=== PATIENT | male | born 1975 ===

== ENCOUNTER 2021-09-07 22:31 | Inpatient (IN) | payer SELFPAY, OTHER ==
[2021-09-07] MEDS ORDERED: cefTRIAXone/NS 2 GM/100 ML 2 GM/100 ML BAG IV ONE (22:43)
[2021-09-07] MEDS ORDERED: SODIUM CHLORIDE 0.9% 1000 ML IV SOLN IV ONE (22:43)
[2021-09-07] MEDS ORDERED: AZITHROMYCIN/NS 500 MG/250 ML 500 MG/250 ML BAG IV ONE (22:43)
[2021-09-07 23:15] LABS: Basophils % (Auto) 0.2 % (0.0-1.8); Eosinophils % (Auto) 0.1 % (0.0-4.3); Hemoglobin 15.9 gm/dl (10.1-14.3); Lymphocytes # (Auto) 0.8 K/mm3 (1.2-5.4); Lymphocytes % (Auto) 12.7 % (13.4-35.0); Mean Corpuscular HGB Conc 33 % (30-34); Mean Corpuscular Volume 93 fl (79-97); Monocytes # (Auto) 0.5 K/mm3 (0.0-0.8); Monocytes % (Auto) 9.2 % (0.0-7.3); Platelet Count 355 K/mm3 (140-440); Red Blood Count 5.17 M/mm3 (3.65-5.03); Red Cell Distribution Width 12.4 % (13.2-15.2)
--- NOTE | 2021-09-07 23:17 | XRay Report ---
CHEST 1 VIEW INDICATION: hypoxia. COMPARISON: None FINDINGS: SUPPORT DEVICES: None. HEART: Within normal limits. LUNGS/PLEURA: Mild patchy multifocal airspace disease, especially in the right lung. No effusion. ADDITIONAL FINDINGS: None. IMPRESSION: 1. Lung findings as above. Signer Name: Madi Ramos MD Signed: 09/07/2021 11:13 PM Workstation Name: [id number]
--- NOTE | 2021-09-07 23:29 | Emergency Department Report ---
ED Shortness of Breath HPI - General Chief Complaint: Dyspnea/Respdistress Stated Complaint: DASHAWN Time Seen by Provider: 09/07/21 22:40 Source: patient Mode of arrival: Ambulatory Limitations: No Limitations - History of Present Illness Initial Comments: Patient is a 46-year-old male with no significant past medical history is presenting with shortness of breath and cough for the last day. Patient also complaining of some mild body aches. Some subjective fevers but no objective fever taken at home. Denies nausea vomiting or diarrhea. Patient has not previously vaccinated against COVID-19 - Related Data Allergies Allergy/AdvReac Type Severity Reaction Status Date / Time No Known Allergies Allergy Unverified 09/07/21 22:36 ED Review of Systems ROS: Stated complaint: DASHAWN Other details as noted in HPI Comment: All other systems reviewed and negative ED Past Medical Hx - Past Medical History Previous Medical History?: No - Surgical History Past Surgical History?: No ED Physical Exam - General Limitations: No Limitations General appearance: alert, in no apparent distress - Head Head exam: Present: atraumatic, normocephalic - Eye Eye exam: Present: normal appearance, PERRL, EOMI - ENT ENT exam: Present: mucous membranes moist - Neck Neck exam: Present: normal inspection - Respiratory Respiratory exam: Present: rhonchi. Absent: normal lung sounds bilaterally, respiratory distress, wheezes, rales - Cardiovascular Cardiovascular Exam: Present: regular rate, normal rhythm, normal heart sounds. Absent: systolic murmur, diastolic murmur, rubs, gallop - GI/Abdominal GI/Abdominal exam: Present: soft, normal bowel sounds. Absent: distended, ten derness, guarding, rebound - Extremities Exam Extremities exam: Present: normal inspection - Back Exam Back exam: Present: normal inspection - Neurological Exam Neurological exam: Present: alert, oriented X3 - Psychiatric Psychiatric exam: Present: normal affect, normal mood - Skin Skin exam: Present: warm, dry, intact, normal color. Absent: rash ED Course Vital Signs 09/07/21 22:35 Temperature 98 F Pulse Rate 87 Respiratory 16 Rate Blood Pressure 112/72 [Right] O2 Sat by Pulse 88 Oximetry ED Medical Decision Making - Lab Data Result diagrams: 09/07/21 22:50 09/07/21 22:50 Lab Results 09/07/21 09/07/21 09/07/21 Range/Units 22:50 22:50 22:50 WBC 6.0 (4.5-11.0) K/mm3 RBC 5.17 H (3.65-5.03) M/mm3 Hgb 15.9 H (10.1-14.3) gm/dl Hct 48.0 H (30.3-42.9) % MCV 93 (79-97) fl MCH 31 (28-32) pg MCHC 33 (30-34) % RDW 12.4 L (13.2-15.2) % Plt Count 355 (140-440) K/mm3 Lymph % (Auto) 12.7 L (13.4-35.0) % [place] % (Auto) 9.2 H (0.0-7.3) % Eos % (Auto) 0.1 (0.0-4.3) % Baso % (Auto) 0.2 (0.0-1.8) % Lymph # (Auto) 0.8 L (1.2-5.4) K/mm3 [place] # (Auto) 0.5 (0.0-0.8) K/mm3 Eos # (Auto) 0.0 (0.0-0.4) K/mm3 Baso # (Auto) 0.0 (0.0-0.1) K/mm3 Seg Neutrophils % 77.8 H (40.0-70.0) % Seg Neutrophils # 4.7 (1.8-7.7) K/mm3 D-Dimer 571.53 H (0-234) ng/mlDDU Sodium 140 (137-145) mmol/L Potassium 3.7 (3.6-5.0) mmol/L Chloride 101.2 (98-107) mmol/L Carbon Dioxide 22 (22-30) mmol/L Anion Gap 21 mmol/L BUN 18 H (7-17) mg/dL Creatinine 0.8 (0.6-1.2) mg/dL Estimated GFR > 60 ml/min BUN/Creatinine Ratio 23 % Glucose 172 H (65-100) mg/dL Lactic Acid (0.7-2.0) mmol/L Calcium 8.7 (8.4-10.2) mg/dL Total Bilirubin 0.40 (0.1-1.2) mg/dL AST 38 (5-40) units/L ALT 37 (7-56) units/L Alkaline Phosphatase 90 (35-129) units/L Total Protein 8.3 H (6.3-8.2) g/dL Albumin 3.9 (3.9-5) g/dL Albumin/Globulin Ratio 0.9 % 09/07/21 Range/Units 22:50 WBC (4.5-11.0) K/mm3 RBC (3.65-5.03) M/mm3 Hgb (10.1-14.3) gm/dl Hct (30.3-42.9) % MCV (79-97) fl MCH (28-32) pg MCHC (30-34) % RDW (13.2-15.2) % Plt Count (140-440) K/mm3 Lymph % (Auto) (13.4-35.0) % [place] % (Auto) (0.0-7.3) % Eos % (Auto) (0.0-4.3) % Baso % (Auto) (0.0-1.8) % Lymph # (Auto) (1.2-5.4) K/mm3 [place] # (Auto) (0.0-0.8) K/mm3 Eos # (Auto) (0.0-0.4) K/mm3 Baso # (Auto) (0.0-0.1) K/mm3 Seg Neutrophils % (40.0-70.0) % Seg Neutrophils # (1.8-7.7) K/mm3 D-Dimer (0-234) ng/mlDDU Sodium (137-145) mmol/L Potassium (3.6-5.0) mmol/L Chloride (98-107) mmol/L Carbon Dioxide (22-30) mmol/L Anion Gap mmol/L BUN (7-17) mg/dL Creatinine (0.6-1.2) mg/dL Estimated GFR ml/min BUN/Creatinine Ratio % Glucose (65-100) mg/dL Lactic Acid 1.40 (0.7-2.0) mmol/L Calcium (8.4-10.2) mg/dL Total Bilirubin (0.1-1.2) mg/dL AST (5-40) units/L ALT (7-56) units/L Alkaline Phosphatase (35-129) units/L Total Protein (6.3-8.2) g/dL Albumin (3.9-5) g/dL Albumin/Globulin Ratio % - Radiology Data Ordering Physician: ADRIAN MILLER MD Date of Service: 09/07/21 Procedure(s): XR chest 1V ap Accession Number(s): [id number] cc: ADRIAN MILLER MD Fluoro Time In Minutes: CHEST 1 VIEW INDICATION: hypoxia. COMPARISON: None FINDINGS: SUPPORT DEVICES: None. HEART: Within normal limits. LUNGS/PLEURA: Mild patchy multifocal airspace disease, especially in the right lung. No effusion. ADDITIONAL FINDINGS: None. IMPRESSION: 1. Lung findings as above. Signer Name: Madi Ramos MD Signed: 09/07/2021 11:13 PM Workstation Name: [id number] - Medical Decision Making Patient more comfortable on oxygen. Chest x-ray consistent with bilateral lateral hazy pneumonia most likely from COVID since the patient is not v accinated. Patient will be admitted to the hospital service for further management. Critical Care Time: Yes (30) Critical care attestation.: If time is entered above; I have spent that time in minutes in the direct care of this critically ill patient, excluding procedure time. ED Disposition Clinical Impression: Atypical pneumonia, Hypoxia, Suspected COVID-19 virus infection Disposition: ADMITTED INPATIENT Is pt being admited?: Yes Does the pt Need Aspirin: No Condition: Stable Referrals: PRIMARY CARE, [Primary Care Provider] - 3-5 Days Time of Disposition: 23:52
[2021-09-07 23:33] LABS: Alanine Aminotransferase 37 units/L (7-56); Albumin 3.9 g/dL (3.9-5); BUN/Creatinine Ratio 23; Blood Urea Nitrogen 18 mg/dL (7-17); Calcium 8.7 mg/dL (8.4-10.2); Hemolysis Index 1
[2021-09-07] MEDS ORDERED: dexAMETHasone 20 MG/5 ML VIAL IV ONE (23:41)
[2021-09-08] MEDS ORDERED: ACETAMINOPHEN 325 MG TAB PO PRN (01:14)
[2021-09-08] MEDS ORDERED: ALBUTEROL 2.5 MG/3 ML NEBU IH PRN (01:14)
[2021-09-08] MEDS ORDERED: HYDROmorphone 1 MG/1 ML INJ IV PRN (01:14)
[2021-09-08] MEDS ORDERED: MORPHINE 2 MG/1 ML INJ IV PRN (01:14)
[2021-09-08] MEDS ORDERED: ONDANSETRON 4 MG/2 ML INJ IV PRN (01:14)
--- NOTE | 2021-09-08 01:22 | History and Physical Report ---
History of Present Illness Date of examination: 09/08/21 Date of admission: 09/08/21 Chief complaint: Shortness of breath History of present illness: 46-year-old male with no significant past medical history was brought to the emergency room because of shortness of breath and cough for the last day. Patient also complaining of some mild body aches. Some subjective fevers but no objective fever taken at home. Denies nausea vomiting or diarrhea. Patient has not previously vaccinated against COVID-19 In the emergency room patient O2 sat was 88% Chest x-ray consistent with bilateral lateral hazy pneumonia most likely from COVID since the patient is not vaccinated. Patient will be admitted to the hospital service for further management. Medications and Allergies Allergies Allergy/AdvReac Type Severity Reaction Status Date / Time No Known Allergies Allergy Unverified 09/07/21 22:36 Active Meds: Active Medications Acetaminophen (Acetaminophen 325 Mg Tab) 650 mg PO Q4H PRN PRN Reason: Pain MILD(1-3)/Fever >100.5/NEWELL Albuterol (Albuterol 2.5 Mg/3 Ml Nebu) 2.5 mg IH Q4HRT PRN PRN Reason: Shortness Of Breath Albuterol/Ipratropium (Ipratropium/Albuterol Sulfate 3 Ml Ampul.Neb) 1 ampul IH Q6HRT [facility] Famotidine (Famotidine 20 Mg Tab) 20 mg PO BID [facility] Heparin Sodium (Porcine) (Heparin 5,000 Unit/1 Ml Vial) 5,000 unit SUB-Q Q8HR [facility] Hydromorphone HCl (Hydromorphone 1 Mg/1 Ml Inj) 0.5 mg IV Q3H PRN PRN Reason: Pain , Severe (7-10) Ceftriaxone Sodium (Rocephin/Ns 2 Gm/100 Ml) 2 gm in 100 mls @ 200 mls/hr IV Q24H [facility]; Protocol Azithromycin (Zithromax/Ns) 500 mg in 250 mls @ 250 mls/hr IV Q24H [facility]; Protocol Morphine Sulfate (Morphine 2 Mg/1 Ml Inj) 2 mg IV Q4H PRN PRN Reason: Pain, Moderate (4-6) Ondansetron HCl (Ondansetron 4 Mg/2 Ml Inj) 4 mg IV Q8H PRN PRN Reason: Nausea And Vomiting Sodium Chloride (Sodium Chloride 0.9% 10 Ml Flush Syringe) 10 ml IV BID [facility] Sodium Chloride (Sodium Chloride 0.9% 10 Ml Flush Syringe) 10 ml IV PRN PRN PRN Reason: LINE FLUSH Review of Systems All systems: negative Constitutional: fever, other (Mild body ache) Cardiovascular: shortness of breath, dyspnea on exertion Respiratory: cough, shortness of breath, dyspnea on exertion Exam - Constitutional Vitals: Temp Pulse Resp BP Pulse Ox 98 F 87 16 112/72 88 09/07/21 22:35 09/07/21 22:35 09/07/21 22:35 09/07/21 22:35 09/07/21 22:35 General appearance: Present: no acute distress, well-nourished - EENT Eyes: Present: PERRL ENT: hearing intact, clear oral mucosa - Neck Neck: Present: supple, normal ROM - Respiratory Respiratory effort: normal Respiratory: bilateral: diminished - Cardiovascular Heart Sounds: Present: S1 & S2. Absent: rub, click - Extremities Extremities: pulses symmetrical, No edema Peripheral Pulses: within normal limits - Abdominal General gastrointestinal: Present: soft, non-tender, non-distended, normal bowel sounds Female genitourinary: Present: normal - Integumentary Integumentary: Present: clear, warm, dry - Musculoskeletal Musculoskeletal: gait normal, strength equal bilaterally - Psychiatric Psychiatric: appropriate mood/affect, intact judgment & insight - Neurologic Neurologic: CNII-XII intact, moves all extremities Results - Labs CBC & Chem 7: 09/07/21 22:50 09/07/21 22:50 Labs: Laboratory Last Values WBC 6.0 K/mm3 (4.5-11.0) 09/07/21 22:50 RBC 5.17 M/mm3 (3.65-5.03) H 09/07/21 22:50 Hgb 15.9 gm/dl (10.1-14.3) H 09/07/21 22:50 Hct 48.0 % (30.3-42.9) H 09/07/21 22:50 MCV 93 fl (79-97) 09/07/21 22:50 MCH 31 pg (28-32) 09/07/21 22:50 MCHC 33 % (30-34) 09/07/21 22:50 RDW 12.4 % (13.2-15.2) L 09/07/21 22:50 Plt Count 355 K/mm3 (140-440) 09/07/21 22:50 Lymph % (Auto) 12.7 % (13.4-35.0) L 09/07/21 22:50 [place] % (Auto) 9.2 % (0.0-7.3) H 09/07/21 22:50 Eos % (Auto) 0.1 % (0.0-4.3) 09/07/21 22:50 Baso % (Auto) 0.2 % (0.0-1.8) 09/07/21 22:50 Lymph # (Auto) 0.8 K/mm3 (1.2-5.4) L 09/07/21 22:50 [place] # (Auto) 0.5 K/mm3 (0.0-0.8) 09/07/21 22:50 Eos # (Auto) 0.0 K/mm3 (0.0-0.4) 09/07/21 22:50 Baso # (Auto) 0.0 K/mm3 (0.0-0.1) 09/07/21 22:50 Seg Neutrophils % 77.8 % (40.0-70.0) H 09/07/21 22:50 Seg Neutrophils # 4.7 K/mm3 (1.8-7.7) 09/07/21 22:50 D-Dimer 571.53 ng/mlDDU (0-234) H 09/07/21 22:50 Sodium 140 mmol/L (137-145) 09/07/21 22:50 Potassium 3.7 mmol/L (3.6-5.0) 09/07/21 22:50 Chloride 101.2 mmol/L (98-107) 09/07/21 22:50 Carbon Dioxide 22 mmol/L (22-30) 09/07/21 22:50 Anion Gap 21 mmol/L 09/07/21 22:50 BUN 18 mg/dL (7-17) H 09/07/21 22:50 Creatinine 0.8 mg/dL (0.6-1.2) 09/07/21 22:50 Estimated GFR > 60 ml/min 09/07/21 22:50 BUN/Creatinine Ratio 23 % 01/12/22 22:50 Glucose 172 mg/dL (65-100) H 09/07/21 22:50 Lactic Acid 1.40 mmol/L (0.7-2.0) 09/07/21 22:50 Calcium 8.7 mg/dL (8.4-10.2) 09/07/21 22:50 Total Bilirubin 0.40 mg/dL (0.1-1.2) 09/07/21 22:50 AST 38 units/L (5-40) 09/07/21 22:50 ALT 37 units/L (7-56) 09/07/21 22:50 Alkaline Phosphatase 90 units/L (35-129) 09/07/21 22:50 Total Protein 8.3 g/dL (6.3-8.2) H 09/07/21 22:50 Albumin 3.9 g/dL (3.9-5) 09/07/21 22:50 Albumin/Globulin Ratio 0.9 % 09/07/21 22:50 - Imaging and Cardiology Chest x-ray: report reviewed Assessment and Plan VTE prophylaxis?: Chemical Plan of care discussed with patient/family: Yes - Patient Problems (1) Suspected COVID-19 virus infection Current Visit: Yes Status: Acute Plan to address problem: Admit the patient to the [facility]. Oxygen by nasal cannula 3 L/min. DuoNeb by nebulizer every 4 hours. Albuterol via nebulizer every 4 hours as needed. Rocephin 2 g IV daily. Zithromax 500 mg IV daily. Decadron 6 mg IV daily. We will do the blood culture and sputum culture. Send a COVID PCR. Follow COVID inflammatory marker. We will consult infectious disease evaluation. (2) Hypoxia Current Visit: Yes Status: Acute Plan to address problem: Oxygen by nasal cannula 3 L/min. DuoNeb by nebulizer every 4 hours. Albuterol via nebulizer every 4 hours as needed. Decadron 6 mg IV daily. (3) Atypical pneumonia Current Visit: Yes Status: Acute Plan to address problem: Oxygen by nasal cannula 3 L/min. DuoNeb by nebulizer every 4 hours. Albuterol via nebulizer every 4 hours as needed. Rocephin 2 g IV daily. Zithromax 500 mg IV daily. We will do the blood culture and sputum culture. Send a COVID PCR. Follow COVID inflammatory marker. We will consult infectious disease evaluati on. (4) DVT prophylaxis Current Visit: Yes Status: Acute Plan to address problem: Heparin 5000 units subcu every 8 hours for DVT prophylaxis. Pepcid 20 mg p.o. twice daily for GI prophylaxis. Patient is a full code
[2021-09-08] MEDS: IPRATROPIUM/ALBUTEROL SULFATE 3 ML AMPUL.NEB IH SCH ×2 (03:45→10:58)
[2021-09-08] MEDS: HEPARIN 5,000 UNIT/1 ML VIAL SUB-Q SCH ×3 (06:43→22:46)
[2021-09-08] MEDS ORDERED: CHOLECALCIFEROL (VIT D3) 400 UNIT TAB PO SCH (10:00)
[2021-09-08] MEDS ORDERED: AZITHROMYCIN/NS 500 MG/250 ML 500 MG/250 ML BAG IV SCH (10:00)
[2021-09-08] MEDS: ZINC SULFATE 220 MG CAP PO SCH ×2 (12:25→22:45)
[2021-09-08] MEDS: FAMOTIDINE 20 MG TAB PO SCH ×2 (12:25→22:45)
[2021-09-08] MEDS: CHOLECALCIFEROL (VIT D3) 1000 UNIT (25 mcg) TAB PO SCH (12:25)
[2021-09-08] MEDS: ASCORBIC ACID 500 MG TAB PO SCH ×2 (12:25→23:14)
[2021-09-08] MEDS: dexAMETHasone 4 MG/ML VIAL IV SCH (12:27)
--- NOTE | 2021-09-08 12:34 | Discharge Summary ---
Providers - Providers Date of Admission: 09/08/21 01:14 Attending physician: DEEPALI BIRD 09/08/21 01:22 Consult to Physician [CONS] Routine Comment: Consulting Provider: BERTRAND CASTELLANOS Physician Instructions: Reason For Exam: covid Primary care physician: [employer]PERVISOR Hospitalization Condition: Stable Exam - Constitutional Vitals: Temp Pulse Resp BP Pulse Ox 97.5 F L 62 25 H 102/67 96 09/08/21 07:40 09/08/21 12:00 09/08/21 12:00 09/08/21 12:00 09/08/21 12:00 Plan Follow up with: PRIMARY CARE, [Primary Care Provider] - 3-5 Days Prescriptions: Azithromycin 250 mg PO DAILY #6 Prednisone [predniSONE 10 mg (6-Day Pack, 21 Tabs)] 10 mg PO .TAPER #1 Ascorbic Acid [Vitamin C] 1,000 mg PO DAILY #12 Cholecalciferol Vit D3 [Vitamin D3 1,000 UNIT TAB] 1,000 unit PO QDAY #12 tablet Zinc Sulfate [Zinc] 220 mg PO BID #24
[2021-09-08] MEDS ORDERED: REMDESIVIR 200 MG in SODIUM CHLORIDE 0.9% 250ML 250 ML IV ONE (14:00)
--- NOTE | 2021-09-08 14:02 | Consultation ---
History of Present Illness - Reason for Consult Consult date: 09/08/21 COVID Requesting physician: SATNAM WALLER - History of Present Illness The patient is a 46-year-old male admitted as COVID-19 PUI. Unvaccinated. Hypoxic. Review of Systems: reviewed in the chart, unable to obtain, minimize risk of transmission Medications and Allergies Allergies Allergy/AdvReac Type Severity Reaction Status Date / Time No Known Allergies Allergy Unverified 09/07/21 22:36 Home Medications Medication Instructions Recorded Confirmed Last Taken Type Ascorbic Acid [Vitamin C] 1,000 mg PO DAILY #12 09/08/21 Unknown Rx Azithromycin 250 mg PO DAILY #6 09/08/21 Unknown Rx Cholecalciferol Vit D3 [Vitamin D3 1,000 unit PO QDAY #12 tablet 09/08/21 Unknown Rx 1,000 UNIT TAB] Prednisone [predniSONE 10 mg 10 mg PO .TAPER #1 09/08/21 Unknown Rx (6-Day Pack, 21 Tabs)] Zinc Sulfate [Zinc] 220 mg PO BID #24 09/08/21 Unknown Rx Active Meds: Active Medications Acetaminophen (Acetaminophen 325 Mg Tab) 650 mg PO Q4H PRN PRN Reason: Pain MILD(1-3)/Fever >100.5/NEWELL Albuterol (Albuterol 2.5 Mg/3 Ml Nebu) 2.5 mg IH Q4HRT PRN PRN Reason: Shortness Of Breath Albuterol/Ipratropium (Ipratropium/Albuterol Sulfate 3 Ml Ampul.Neb) 1 ampul IH Q6HRT [facility] Last Admin: 09/08/21 10:58 Dose: Not Given Ascorbic Acid (Ascorbic Acid 500 Mg Tab) 500 mg PO BID [facility] Last Admin: 09/08/21 12:25 Dose: 500 mg Azithromycin (Azithromycin 250 Mg Tab) 500 mg PO QHS [facility] Stop: 09/11/21 22:01 Cholecalciferol (Cholecalciferol (Vit D3) 1000 Unit (25 Mcg) Tab) 1,000 unit PO DAILY [facility] Last Admin: 09/08/21 12:25 Dose: 1,000 unit Dexamethasone (Dexamethasone 4 Mg/Ml Vial) 6 mg IV DAILY [facility] Stop: 09/16/21 10:01 Last Admin: 09/08/21 12:27 Dose: 6 mg Famotidine (Famotidine 20 Mg Tab) 20 mg PO BID [facility] Last Admin: 09/08/21 12:25 Dose: 20 mg Heparin Sodium (Porcine) (Heparin 5,000 Unit/1 Ml Vial) 5,000 unit SUB-Q Q8HR [facility] Last Admin: 09/08/21 06:43 Dose: 5,000 unit Hydromorphone HCl (Hydromorphone 1 Mg/1 Ml Inj) 0.5 mg IV Q3H PRN PRN Reason: Pain , Severe (7-10) Ceftriaxone Sodium (Rocephin/Ns 2 Gm/100 Ml) 2 gm in 100 mls @ 200 mls/hr IV Q24HR@2200 [facility]; Protocol Stop: 09/11/21 22:29 REMDESIVIR 200 mg/ Sodium (Chloride) 250 mls @ 500 mls/hr IV ONCE ONE Stop: 09/08/21 14:29 REMDESIVIR 100 mg/ Sodium (Chloride) 250 mls @ 500 mls/hr IV Q24HR@2100 [facility] Stop: 09/12/21 21:29 Morphine Sulfate (Morphine 2 Mg/1 Ml Inj) 2 mg IV Q4H PRN PRN Reason: Pain, Moderate (4-6) Ondansetron HCl (Ondansetron 4 Mg/2 Ml Inj) 4 mg IV Q8H PRN PRN Reason: Nausea And Vomiting Sodium Chloride (Sodium Chloride 0.9% 10 Ml Flush Syringe) 10 ml IV BID [facility] Last Admin: 09/08/21 12:25 Dose: 10 ml Sodium Chloride (Sodium Chloride 0.9% 10 Ml Flush Syringe) 10 ml IV PRN PRN PRN Reason: LINE FLUSH Sodium Chloride (Sodium Chloride 0.9% 50 Ml Ivpb) 50 ml IV Q24HR@2100 [facility] Stop: 09/12/21 21:01 Zinc Sulfate (Zinc Sulfate 220 Mg Cap) 220 mg PO BID [facility] Last Admin: 09/08/21 12:25 Dose: 220 mg Physical Examination - Physical Exam Narrative exam: Physical Exam (reviewed in chart to minimize risk of transmission) Constitutional: deferred Head, Ears, Nose: deferred Eyes: deferred Neck: deferred Oral: deferred Cardiovascular: deferred Respiratory: deferred GI: deferred Musculoskeletal: deferred Skin: deferred Hem/Lymphatic: deferred Psych: deferred Neurological: deferred - Constitutional Vitals: Vital Signs Temp Pulse Resp BP Pulse Ox 97.5 F L 62 25 H 102/67 96 09/08/21 07:40 09/08/21 12:00 09/08/21 12:00 09/08/21 12:00 09/08/21 12:00 Temperature -Last 24 Hours Temperature 97.5 F Temperature 98 F Results - Labs CBC & Chem 7: 09/07/21 22:50 09/07/21 22:50 Labs: Abnormal lab results 09/07/21 09/07/21 09/07/21 Range/Units 22:50 22:50 22:50 RBC 5.17 H (3.65-5.03) M/mm3 Hgb 15.9 H (10.1-14.3) gm/dl Hct 48.0 H (30.3-42.9) % RDW 12.4 L (13.2-15.2) % Lymph % (Auto) 12.7 L (13.4-35.0) % [place] % (Auto) 9.2 H (0.0-7.3) % Lymph # (Auto) 0.8 L (1.2-5.4) K/mm3 Seg Neutrophils % 77.8 H (40.0-70.0) % D-Dimer 571.53 H (0-234) ng/mlDDU BUN 18 H (7-17) mg/dL Glucose 172 H (65-100) mg/dL Ferritin (30.0-300.0) ng/mL Lactate Dehydrogenase 359 H (91-180) units/L C-Reactive Protein 13.00 H (0.00-1.30) mg/dL Total Protein 8.3 H (6.3-8.2) g/dL 09/07/21 Range/Units 22:50 RBC (3.65-5.03) M/mm3 Hgb (10.1-14.3) gm/dl Hct (30.3-42.9) % RDW (13.2-15.2) % Lymph % (Auto) (13.4-35.0) % [place] % (Auto) (0.0-7.3) % Lymph # (Auto) (1.2-5.4) K/mm3 Seg Neutrophils % (40.0-70.0) % D-Dimer (0-234) ng/mlDDU BUN (7-17) mg/dL Glucose (65-100) mg/dL Ferritin 1159.0 H (30.0-300.0) ng/mL Lactate Dehydrogenase (91-180) units/L C-Reactive Protein (0.00-1.30) mg/dL Total Protein (6.3-8.2) g/dL - Imaging and Cardiology Chest x-ray: report reviewed (patchy airspace disease) Assessment and Plan Cultures: SARS CoV2 PCR: Pending A/P: 46/M with: #Bilateral pneumonia: High suspicion for COVID-19. CRP 13.0, ferritin 1159 #Acute hypoxic respiratory failure: Secondary to above. Recs: -IV/PO Dexamethasone x 10 days -ordered IV remdesivir x 5 days if he remains inpatient -prophylactic anticoagulation based on d-dimer per hospital protocol -if procalcitonin is low, abx not needed -trend ferritin, d-dimer, CRP every 2-3 days Nany Upton MD, [facility] O: [phone] F: [phone]
[2021-09-08 15:43] LABS: Alanine Aminotransferase 43 units/L (7-56); Albumin 3.6 g/dL (3.9-5); Blood Urea Nitrogen 21 mg/dL (9-20); Calcium 8.5 mg/dL (8.4-10.2); Hemolysis Index 1
[2021-09-08 15:44] LABS: BUN/Creatinine Ratio 30
[2021-09-08] MEDS ORDERED: AZITHROMYCIN 250 MG TAB PO SCH (22:00)
[2021-09-08] MEDS ORDERED: cefTRIAXone/NS 2 GM/100 ML 2 GM/100 ML BAG IV SCH (22:00)
[2021-09-08] MEDS: SODIUM CHLORIDE 0.9% 50 ML IVPB IV SCH (23:13)
[2021-09-09 04:34] LABS: Basophils % (Auto) 0.1 % (0.0-1.8); Hematocrit 42.1 % (35.5-45.6); Hemoglobin 13.8 gm/dl (11.8-15.2); Lymphocytes # (Auto) 0.7 K/mm3 (1.2-5.4); Lymphocytes % (Auto) 8.4 % (13.4-35.0); Mean Corpuscular HGB Conc 33 % (32-34); Mean Corpuscular Volume 95 fl (84-94); Monocytes # (Auto) 0.6 K/mm3 (0.0-0.8); Monocytes % (Auto) 7.8 % (0.0-7.3); Platelet Count 398 K/mm3 (140-440); Red Blood Count 4.45 M/mm3 (3.65-5.03); Red Cell Distribution Width 12.8 % (13.2-15.2)
[2021-09-09 04:58] LABS: Alanine Aminotransferase 46 units/L (7-56); Albumin 3.1 g/dL (3.9-5); BUN/Creatinine Ratio 34; Blood Urea Nitrogen 24 mg/dL (9-20); Calcium 8.4 mg/dL (8.4-10.2); Hemolysis Index 5
[2021-09-09] MEDS: HEPARIN 5,000 UNIT/1 ML VIAL SUB-Q SCH ×3 (05:30→22:45)
[2021-09-09] MEDS: dexAMETHasone 4 MG/ML VIAL IV SCH (10:28)
[2021-09-09] MEDS: IPRATROPIUM/ALBUTEROL SULFATE 3 ML AMPUL.NEB IH SCH ×3 (10:31→23:52)
[2021-09-09] MEDS: CHOLECALCIFEROL (VIT D3) 1000 UNIT (25 mcg) TAB PO SCH (10:32)
--- NOTE | 2021-09-09 12:18 | Progress Note ---
Assessment and Plan - Patient Problems (1) Acute respiratory failure Current Visit: Yes Status: Acute Qualifiers: Respiratory failure complication: hypoxia Qualified Code(s): J96.01 - Acute respiratory failure with hypoxia Plan to address problem: Supplemental oxygen, pulse oximetry, nebulizer therapy, pulmonary toilet. (2) Pneumonia Current Visit: Yes Status: Acute Plan to address problem: Pneumonia protocol: Chest x-ray, CBC, CMP, IV antibiotic therapy, supplemental oxygen, pulse oximetry, pulmonary toilet, blood culture. (3) Coronavirus infection Current Visit: Yes Status: Acute Plan to address problem: Groin rash protocol: IV steroid therapy, IV antibiotic therapy, vitamin C therapy, vitamin D therapy, zinc therapy, supplemental oxygen. (4) DVT prophylaxis Current Visit: Yes Status: Acute Plan to address problem: SCD to bilateral lower extremities while in bed, prophylactic anticoagulation (5) Advance care planning Current Visit: Yes Status: Acute Plan to address problem: Disease education conducted, care plan discussed, diagnosis discussed, prognosis discussed, patient is full code, patient acknowledges understanding and agreement with care plan, +30 minutes (6) COVID-19 vaccination not done Current Visit: Yes Status: Acute Plan to address problem: Patient counseled. History Interval history: 46 YO Male HD #2 with Coronavirus Infection, Pneumonia. Patient rested comfortably overnight. No reported nursing events. Patient denies pain. Patie nt symptoms improved. Discharge planning in a.m. Hospitalist Physical - Constitutional Vitals: Temp Pulse Resp BP Pulse Ox 97.5 F L 50 L 22 97/59 92 09/08/21 07:40 09/09/21 05:00 09/09/21 05:00 09/09/21 05:00 09/09/21 05:00 General appearance: Present: no acute distress, well-nourished - EENT Eyes: Present: PERRL, EOM intact ENT: hearing intact - Neck Neck: Present: supple - Respiratory Respiratory effort: normal Respiratory: bilateral: diminished, rhonchi - Cardiovascular Rhythm: regular Heart Sounds: Present: S1 & S2 - Extremities Extremities: no ischemia Peripheral Pulses: within normal limits - Abdominal General gastrointestinal: soft, non-tender, non-distended - Integumentary Integumentary: Present: clear, dry - Psychiatric Psychiatric: cooperative - Neurologic Neurologic: CNII-XII intact Results - Labs CBC & Chem 7: 09/09/21 04:21 09/09/21 04:21 Labs: Laboratory Last Values WBC 8.1 K/mm3 (4.5-11.0) 09/09/21 04:21 RBC 4.45 M/mm3 (3.65-5.03) 09/09/21 04:21 Hgb 13.8 gm/dl (11.8-15.2) 09/09/21 04:21 Hct 42.1 % (35.5-45.6) 09/09/21 04:21 MCV 95 fl (84-94) H 09/09/21 04:21 MCH 31 pg (28-32) 09/09/21 04:21 MCHC 33 % (32-34) 09/09/21 04:21 RDW 12.8 % (13.2-15.2) L 09/09/21 04:21 Plt Count 398 K/mm3 (140-440) 09/09/21 04:21 Lymph % (Auto) 8.4 % (13.4-35.0) L 09/09/21 04:21 [place] % (Auto) 7.8 % (0.0-7.3) H 09/09/21 04:21 Eos % (Auto) 0.0 % (0.0-4.3) 09/09/21 04:21 Baso % (Auto) 0.1 % (0.0-1.8) 09/09/21 04:21 Lymph # (Auto) 0.7 K/mm3 (1.2-5.4) L 09/09/21 04:21 [place] # (Auto) 0.6 K/mm3 (0.0-0.8) 09/09/21 04:21 Eos # (Auto) 0.0 K/mm3 (0.0-0.4) 09/09/21 04:21 Baso # (Auto) 0.0 K/mm3 (0.0-0.1) 09/09/21 04:21 Seg Neutrophils % 83.7 % (40.0-70.0) H 09/09/21 04:21 Seg Neutrophils # 6.8 K/mm3 (1.8-7.7) 09/09/21 04:21 D-Dimer 571.53 ng/mlDDU (0-234) H 09/07/21 22:50 Sodium 138 mmol/L (137-145) 09/09/21 04:21 Potassium 4.2 mmol/L (3.6-5.0) 09/09/21 04:21 Chloride 104.7 mmol/L (98-107) 09/09/21 04:21 Carbon Dioxide 21 mmol/L (22-30) L 09/09/21 04:21 Anion Gap 17 mmol/L 09/09/21 04:21 BUN 24 mg/dL (9-20) H 09/09/21 04:21 Creatinine 0.7 mg/dL (0.8-1.3) L 09/09/21 04:21 Estimated GFR > 60 ml/min 09/09/21 04:21 BUN/Creatinine Ratio 34 % 09/09/21 04:21 Glucose 323 mg/dL (75-100) H 09/09/21 04:21 Lactic Acid 1.40 mmol/L (0.7-2.0) 09/08/21 02:04 Calcium 8.4 mg/dL (8.4-10.2) 09/09/21 04:21 Ferritin 1159.0 ng/mL (30.0-300.0) H 09/07/21 22:50 Total Bilirubin 0.20 mg/dL (0.1-1.2) 09/09/21 04:21 AST 42 units/L (5-40) H 09/09/21 04:21 ALT 46 units/L (7-56) 09/09/21 04:21 Alkaline Phosphatase 79 units/L (35-129) 09/09/21 04:21 Lactate Dehydrogenase 359 units/L (91-180) H 09/07/21 22:50 C-Reactive Protein 13.00 mg/dL (0.00-1.30) H 09/07/21 22:50 Total Protein 7.0 g/dL (6.3-8.2) 09/09/21 04:21 Albumin 3.1 g/dL (3.9-5) L 09/09/21 04:21 Albumin/Globulin Ratio 0.8 % 09/09/21 04:21 Coronavirus (PCR) Positive (Negative) A 09/08/21 08:27 Microbiology: Microbiology 09/07/21 22:50 Peripheral/Venous Blood Culture - Preliminary NO GROWTH AFTER 24 HOURS 09/07/21 23:52 Peripheral/Venous Blood Culture - Preliminary NO GROWTH AFTER 24 HOURS Karimi/IV: Voiding Method Urinal Active Medications - Current Medications Current Medications: Generic Name Dose Route Start Last Admin Trade Name Freq PRN Reason Stop Dose Admin Acetaminophen 650 mg 09/08/21 01:14 Acetaminophen 325 Mg Tab PO Q4H PRN Pain MILD(1-3)/Fever >100.5/NEWELL Albuterol 2.5 mg 09/08/21 01:14 Albuterol 2.5 Mg/3 Ml Nebu IH Q4HRT PRN Shortness Of Breath Albuterol/Ipratropium 1 ampul 09/08/21 02:00 09/09/21 10:31 Ipratropium/Albuterol Sulfate 3 Ml Ampul.Neb IH 1 ampul Q6HRT SWATHI Administration Ascorbic Acid 500 mg 09/08/21 10:00 09/08/21 23:14 Ascorbic Acid 500 Mg Tab PO 500 mg BID SWATHI Administration Azithromycin 500 mg 09/08/21 22:00 09/08/21 22:45 Azithromycin 250 Mg Tab PO 09/11/21 22:01 500 mg QHS SWATHI Administration Cholecalciferol 1,000 unit 09/08/21 10:00 09/09/21 10:32 Cholecalciferol (Vit D3) 1000 Unit (25 Mcg) Tab PO 1,000 unit DAILY SWATHI Administration Dexamethasone 6 mg 09/08/21 10:00 09/09/21 10:28 Dexamethasone 4 Mg/Ml Vial IV 09/16/21 10:01 6 mg DAILY SWATHI Administration Famotidine 20 mg 09/08/21 10:00 09/08/21 22:45 Famotidine 20 Mg Tab PO 20 mg BID SWATHI Administration Heparin Sodium (Porcine) 5,000 unit 09/08/21 06:00 09/09/21 05:30 Heparin 5,000 Unit/1 Ml Vial SUB-Q 5,000 unit Q8HR SWATHI Administration Hydromorphone HCl 0.5 mg 09/08/21 01:14 Hydromorphone 1 Mg/1 Ml Inj IV Q3H PRN Pain , Severe (7-10) Ceftriaxone Sodium 2 gm in 100 mls @ 200 mls/hr 09/08/21 22:00 09/08/21 22:44 Rocephin/Ns 2 Gm/100 Ml IV 09/11/21 22:29 200 mls/hr Q24HR@2200 SWATHI Administration Protocol REMDESIVIR 100 mg/ Sodium 250 mls @ 500 mls/hr 09/09/21 21:00 Chloride IV 09/12/21 21:29 Q24HR@2100 SWATHI Morphine Sulfate 2 mg 09/08/21 01:14 Morphine 2 Mg/1 Ml Inj IV Q4H PRN Pain, Moderate (4-6) Ondansetron HCl 4 mg 09/08/21 01:14 Ondansetron 4 Mg/2 Ml Inj IV Q8H PRN Nausea And Vomiting Sodium Chloride 10 ml 09/08/21 10:00 09/08/21 22:45 Sodium Chloride 0.9% 10 Ml Flush Syringe IV 10 ml BID SWATHI Administration Sodium Chloride 10 ml 09/08/21 01:14 Sodium Chloride 0.9% 10 Ml Flush Syringe IV PRN PRN LINE FLUSH Sodium Chloride 50 ml 09/08/21 21:00 09/08/21 23:13 Sodium Chloride 0.9% 50 Ml Ivpb IV 09/12/21 21:01 Not Given Q24HR@2100 SWATHI Zinc Sulfate 220 mg 09/08/21 10:00 09/08/21 22:45 Zinc Sulfate 220 Mg Cap PO 220 mg BID SWATHI Administration
[2021-09-09] MEDS: ASCORBIC ACID 500 MG TAB PO SCH ×2 (12:37→22:44)
[2021-09-09] MEDS: FAMOTIDINE 20 MG TAB PO SCH ×2 (12:38→22:44)
[2021-09-09] MEDS: ZINC SULFATE 220 MG CAP PO SCH ×2 (14:35→22:45)
--- NOTE | 2021-09-09 15:29 | Progress Note ---
Assessment and Plan Cultures: SARS CoV2 PCR: positive A/P: 46/M with: #Bilateral pneumonia secondary to COVID-19. CRP 13.0, ferritin 1159 #Acute hypoxic respiratory failure: Secondary to above. Recs: -continue IV/PO Dexamethasone x 10 days -continue IV remdesivir x 5 days if he remains inpatient -prophylactic anticoagulation based on d-dimer per hospital protocol -procalcitonin is low, abx not needed Will sign off. Please call with questions. Nany Upton MD, FACP, [facility] ([facility]) O: [phone] F: [phone] Subjective Date of service: 09/09/21 Interval history: No fever. Remains on oxygen by [place]. Objective - Exam Narrative Exam: Physical Exam (reviewed in chart to minimize risk of transmission) Constitutional: deferred Head, Ears, Nose: deferred Eyes: deferred Neck: deferred Oral: deferred Cardiovascular: deferred Respiratory: deferred GI: deferred Musculoskeletal: deferred Skin: deferred Hem/Lymphatic: deferred Psych: deferred Neurological: deferred - Constitutional Vitals: Vital Signs Temp Pulse Resp BP Pulse Ox 97.5 F L 56 L 29 H 101/62 88 09/08/21 07:40 09/09/21 13:00 09/09/21 13:00 09/09/21 13:00 09/09/21 13:00 - Labs CBC & Chem 7: 09/09/21 04:21 09/09/21 04:21 Labs: Abnormal lab results 09/08/21 09/08/21 09/09/21 Range/Units 08:27 15:06 04:21 MCV 95 H (84-94) fl RDW 12.8 L (13.2-15.2) % Lymph % (Auto) 8.4 L (13.4-35.0) % [place] % (Auto) 7.8 H (0.0-7.3) % Lymph # (Auto) 0.7 L (1.2-5.4) K/mm3 Seg Neutrophils % 83.7 H (40.0-70.0) % Sodium 136 L (137-145) mmol/L Carbon Dioxide 20 L (22-30) mmol/L BUN 21 H (9-20) mg/dL Creatinine 0.7 L (0.8-1.3) mg/dL Glucose 350 H (75-100) mg/dL AST (5-40) units/L Albumin 3.6 L (3.9-5) g/dL Coronavirus (PCR) Positive A (Negative) 09/09/21 Range/Units 04:21 MCV (84-94) fl RDW (13.2-15.2) % Lymph % (Auto) (13.4-35.0) % [place] % (Auto) (0.0-7.3) % Lymph # (Auto) (1.2-5.4) K/mm3 Seg Neutrophils % (40.0-70.0) % Sodium (137-145) mmol/L Carbon Dioxide 21 L (22-30) mmol/L BUN 24 H (9-20) mg/dL Creatinine 0.7 L (0.8-1.3) mg/dL Glucose 323 H (75-100) mg/dL AST 42 H (5-40) units/L Albumin 3.1 L (3.9-5) g/dL Coronavirus (PCR) (Negative)
[2021-09-09] MEDS: REMDESIVIR 100 MG in SODIUM CHLORIDE 0.9% 250ML 250 ML IV SCH (22:44)
[2021-09-09] MEDS: SODIUM CHLORIDE 0.9% 50 ML IVPB IV SCH (22:44)
[2021-09-10] MEDS: IPRATROPIUM/ALBUTEROL SULFATE 3 ML AMPUL.NEB IH SCH ×2 (02:54→12:22)
[2021-09-10] MEDS: HEPARIN 5,000 UNIT/1 ML VIAL SUB-Q SCH ×3 (06:13→22:17)
[2021-09-10 09:08] LABS: Alanine Aminotransferase 60 units/L (7-56); Albumin 3.2 g/dL (3.9-5); Blood Urea Nitrogen 24 mg/dL (9-20); Calcium 8.5 mg/dL (8.4-10.2); Hemolysis Index 7
[2021-09-10 09:18] LABS: BUN/Creatinine Ratio 34
[2021-09-10] MEDS: ASCORBIC ACID 500 MG TAB PO SCH ×2 (09:32→22:16)
[2021-09-10] MEDS: CHOLECALCIFEROL (VIT D3) 1000 UNIT (25 mcg) TAB PO SCH (09:32)
[2021-09-10] MEDS: FAMOTIDINE 20 MG TAB PO SCH ×2 (09:32→22:17)
[2021-09-10] MEDS: ZINC SULFATE 220 MG CAP PO SCH ×2 (09:32→22:17)
[2021-09-10] MEDS: dexAMETHasone 4 MG/ML VIAL IV SCH (09:33)
[2021-09-10] MEDS ORDERED: ALBUTEROL 2.5 MG/3 ML NEBU IH PRN (13:00)
--- NOTE | 2021-09-10 19:48 | Progress Note ---
Assessment and Plan - Patient Problems (1) Acute respiratory failure Current Visit: Yes Status: Acute Qualifiers: Respiratory failure complication: hypoxia Qualified Code(s): J96.01 - Acute respiratory failure with hypoxia Plan to address problem: Supplemental oxygen, pulse oximetry, nebulizer therapy, pulmonary toilet. (2) Pneumonia Current Visit: Yes Status: Acute Plan to address problem: Pneumonia protocol: Chest x-ray, CBC, CMP, IV antibiotic therapy, supplemental oxygen, pulse oximetry, pulmonary toilet, blood culture. (3) Coronavirus infection Current Visit: Yes Status: Acute Plan to address problem: Groin rash protocol: IV steroid therapy, IV antibiotic therapy, vitamin C therapy, vitamin D therapy, zinc therapy, supplemental oxygen. (4) DVT prophylaxis Current Visit: Yes Status: Acute Plan to address problem: SCD to bilateral lower extremities while in bed, prophylactic anticoagulation (5) Advance care planning Current Visit: Yes Status: Acute Plan to address problem: Disease education conducted, care plan discussed, diagnosis discussed, prognosis discussed, patient is full code, patient acknowledges understanding and agreement with care plan, +30 minutes (6) COVID-19 vaccination not done Current Visit: Yes Status: Acute Plan to address problem: Patient counseled. History Interval history: 46 YO Male HD #3 with Coronavirus Infection currently undergoing treatment with remdesivir day 1 of 4, Pneumonia. Patient rested comfortably overnight. No reported nursing events. Patient denies pain. Patient symptoms improved. Patient remains on supplemental oxygen via nasal cannula. Patient continues to desaturate with ambulation. Hospitalist Physical - Constitutional Vitals: Temp Pulse Resp BP Pulse Ox 97.6 F 46 L 19 102/61 94 09/10/21 16:21 09/10/21 16:21 09/10/21 16:21 09/10/21 16:21 09/10/21 16:21 General appearance: Present: no acute distress, well-nourished - EENT Eyes: Present: PERRL, EOM intact ENT: hearing intact - Neck Neck: Present: supple - Respiratory Respiratory effort: labored Respiratory: bilateral: diminished, rhonchi - Cardiovascular Rhythm: regular Heart Sounds: Present: S1 & S2 - Extremities Extremities: no ischemia Peripheral Pulses: within normal limits - Abdominal General gastrointestinal: soft, non-tender, non-distended - Integumentary Integumentary: Present: clear, dry - Psychiatric Psychiatric: cooperative - Neurologic Neurologic: CNII-XII intact Results - Labs CBC & Chem 7: 09/09/21 04:21 09/10/21 07:59 Labs: Laboratory Last Values WBC 8.1 K/mm3 (4.5-11.0) 09/09/21 04:21 RBC 4.45 M/mm3 (3.65-5.03) 09/09/21 04:21 Hgb 13.8 gm/dl (11.8-15.2) 09/09/21 04:21 Hct 42.1 % (35.5-45.6) 09/09/21 04:21 MCV 95 fl (84-94) H 09/09/21 04:21 MCH 31 pg (28-32) 09/09/21 04:21 MCHC 33 % (32-34) 09/09/21 04:21 RDW 12.8 % (13.2-15.2) L 09/09/21 04:21 Plt Count 398 K/mm3 (140-440) 09/09/21 04:21 Lymph % (Auto) 8.4 % (13.4-35.0) L 09/09/21 04:21 [place] % (Auto) 7.8 % (0.0-7.3) H 09/09/21 04:21 Eos % (Auto) 0.0 % (0.0-4.3) 09/09/21 04:21 Baso % (Auto) 0.1 % (0.0-1.8) 09/09/21 04:21 Lymph # (Auto) 0.7 K/mm3 (1.2-5.4) L 09/09/21 04:21 [place] # (Auto) 0.6 K/mm3 (0.0-0.8) 09/09/21 04:21 Eos # (Auto) 0.0 K/mm3 (0.0-0.4) 09/09/21 04:21 Baso # (Auto) 0.0 K/mm3 (0.0-0.1) 09/09/21 04:21 Seg Neutrophils % 83.7 % (40.0-70.0) H 09/09/21 04:21 Seg Neutrophils # 6.8 K/mm3 (1.8-7.7) 09/09/21 04:21 D-Dimer 571.53 ng/mlDDU (0-234) H 09/07/21 22:50 Sodium 137 mmol/L (137-145) 09/10/21 07:59 Potassium 4.2 mmol/L (3.6-5.0) 09/10/21 07:59 Chloride 105.7 mmol/L (98-107) 09/10/21 07:59 Carbon Dioxide 22 mmol/L (22-30) 09/10/21 07:59 Anion Gap 14 mmol/L 09/10/21 07:59 BUN 24 mg/dL (9-20) H 09/10/21 07:59 Creatinine 0.7 mg/dL (0.8-1.3) L 09/10/21 07:59 Estimated GFR > 60 ml/min 09/10/21 07:59 BUN/Creatinine Ratio 34 % 09/10/21 07:59 Glucose 304 mg/dL (75-100) H 09/10/21 07:59 Lactic Acid 1.40 mmol/L (0.7-2.0) 09/08/21 02:04 Calcium 8.5 mg/dL (8.4-10.2) 09/10/21 07:59 Ferritin 1159.0 ng/mL (30.0-300.0) H 09/07/21 22:50 Total Bilirubin 0.20 mg/dL (0.1-1.2) 09/10/21 07:59 AST 29 units/L (5-40) 09/10/21 07:59 ALT 60 units/L (7-56) H 09/10/21 07:59 Alkaline Phosphatase 87 units/L (35-129) 09/10/21 07:59 Lactate Dehydrogenase 359 units/L (91-180) H 09/07/21 22:50 C-Reactive Protein 13.00 mg/dL (0.00-1.30) H 09/07/21 22:50 Total Protein 6.3 g/dL (6.3-8.2) 09/10/21 07:59 Albumin 3.2 g/dL (3.9-5) L 09/10/21 07:59 Albumin/Globulin Ratio 1.0 % 09/10/21 07:59 Procalcitonin < 0.05 ng/mL (<0.15) 09/07/21 22:50 Coronavirus (PCR) Positive (Negative) A 09/08/21 08:27 Microbiology: Microbiology 09/07/21 22:50 Peripheral/Venous Blood Culture - Preliminary NO GROWTH AFTER 48 HOURS 09/07/21 23:52 Peripheral/Venous Blood Culture - Preliminary NO GROWTH AFTER 48 HOURS Karimi/IV: Voiding Method Toilet Active Medications - Current Medications Current Medications: Generic Name Dose Route Start Last Admin Trade Name Freq PRN Reason Stop Dose Admin Acetaminophen 650 mg 09/08/21 01:14 Acetaminophen 325 Mg Tab PO Q4H PRN Pain MILD(1-3)/Fever >100.5/NEWELL Albuterol 2.5 mg 09/10/21 13:00 Albuterol 2.5 Mg/3 Ml Nebu IH Q4HRT PRN Shortness Of Breath Ascorbic Acid 500 mg 09/08/21 10:00 09/10/21 09:32 Ascorbic Acid 500 Mg Tab PO 500 mg BID SWATHI Administration Cholecalciferol 1,000 unit 09/08/21 10:00 09/10/21 09:32 Cholecalciferol (Vit D3) 1000 Unit (25 Mcg) Tab PO 1,000 unit DAILY SWATHI Administration Dexamethasone 6 mg 09/08/21 10:00 09/10/21 09:33 Dexamethasone 4 Mg/Ml Vial IV 09/16/21 10:01 6 mg DAILY SWATHI Administration Famotidine 20 mg 09/08/21 10:00 09/10/21 09:32 Famotidine 20 Mg Tab PO 20 mg BID SWATHI Administration Heparin Sodium (Porcine) 5,000 unit 09/08/21 06:00 09/10/21 13:52 Heparin 5,000 Unit/1 Ml Vial SUB-Q 5,000 unit Q8HR SWATHI Administration Hydromorphone HCl 0.5 mg 09/08/21 01:14 Hydromorphone 1 Mg/1 Ml Inj IV Q3H PRN Pain , Severe (7-10) REMDESIVIR 100 mg/ Sodium 250 mls @ 500 mls/hr 09/09/21 21:00 09/09/21 22:44 Chloride IV 09/12/21 21:29 500 mls/hr Q24HR@2100 SWATHI Administration Morphine Sulfate 2 mg 09/08/21 01:14 Morphine 2 Mg/1 Ml Inj IV Q4H PRN Pain, Moderate (4-6) Ondansetron HCl 4 mg 09/08/21 01:14 Ondansetron 4 Mg/2 Ml Inj IV Q8H PRN Nausea And Vomiting Sodium Chloride 10 ml 09/08/21 10:00 09/10/21 09:33 Sodium Chloride 0.9% 10 Ml Flush Syringe IV 10 ml BID SWATHI Administration Sodium Chloride 10 ml 09/08/21 01:14 Sodium Chloride 0.9% 10 Ml Flush Syringe IV PRN PRN LINE FLUSH Sodium Chloride 50 ml 09/08/21 21:00 09/09/21 22:44 Sodium Chloride 0.9% 50 Ml Ivpb IV 09/12/21 21:01 50 ml Q24HR@2100 SWATHI Administration Zinc Sulfate 220 mg 09/08/21 10:00 09/10/21 09:32 Zinc Sulfate 220 Mg Cap PO 220 mg BID SWATHI Administration
[2021-09-10] MEDS: SODIUM CHLORIDE 0.9% 50 ML IVPB IV SCH (22:15)
[2021-09-10] MEDS: REMDESIVIR 100 MG in SODIUM CHLORIDE 0.9% 250ML 250 ML IV SCH (22:16)
[2021-09-11] MEDS: HEPARIN 5,000 UNIT/1 ML VIAL SUB-Q SCH ×3 (05:08→22:37)
[2021-09-11 08:45] LABS: Alanine Aminotransferase 73 units/L (7-56); Albumin 3.2 g/dL (3.9-5); Blood Urea Nitrogen 18 mg/dL (9-20); Calcium 8.8 mg/dL (8.4-10.2); Hemolysis Index 4
[2021-09-11 08:47] LABS: BUN/Creatinine Ratio 30
[2021-09-11] MEDS: ASCORBIC ACID 500 MG TAB PO SCH ×2 (09:30→22:38)
[2021-09-11] MEDS: CHOLECALCIFEROL (VIT D3) 1000 UNIT (25 mcg) TAB PO SCH (09:31)
[2021-09-11] MEDS: ZINC SULFATE 220 MG CAP PO SCH ×2 (09:31→22:38)
[2021-09-11] MEDS: FAMOTIDINE 20 MG TAB PO SCH ×2 (09:31→22:38)
[2021-09-11] MEDS: dexAMETHasone 4 MG/ML VIAL IV SCH (09:31)
--- NOTE | 2021-09-11 14:11 | Progress Note ---
Assessment and Plan - Patient Problems (1) Acute respiratory failure Current Visit: Yes Status: Acute Qualifiers: Respiratory failure complication: hypoxia Qualified Code(s): J96.01 - Acute respiratory failure with hypoxia Plan to address problem: Supplemental oxygen, pulse oximetry, nebulizer therapy, pulmonary toilet. (2) Pneumonia Current Visit: Yes Status: Acute Plan to address problem: Pneumonia protocol: Chest x-ray, CBC, CMP, IV antibiotic therapy, supplemental oxygen, pulse oximetry, pulmonary toilet, blood culture. (3) Coronavirus infection Current Visit: Yes Status: Acute Plan to address problem: Groin rash protocol: IV steroid therapy, IV antibiotic therapy, vitamin C therapy, vitamin D therapy, zinc therapy, supplemental oxygen. Remdesivir therapy (4) DVT prophylaxis Current Visit: Yes Status: Acute Plan to address problem: SCD to bilateral lower extremities while in bed, prophylactic anticoagulation (5) Advance care planning Current Visit: Yes Status: Acute Plan to address problem: Disease education conducted, care plan discussed, diagnosis discussed, prognosis discussed, patient is full code, patient acknowledges understanding and agreement with care plan, +30 minutes (6) COVID-19 vaccination not done Current Visit: Yes Status: Acute Plan to address problem: Patient counseled. History Interval history: 46 YO Male HD #4 with Coronavirus Infection currently undergoing treatment with remdesivir day 2 of 4, Pneumonia. Patient rested comfortably overnight. No reported nursing events. Patient denies pain. Patient symptoms improved. Patient remains on supplemental oxygen via nasal cannula. Patient continues to desaturate with ambulation. Hospitalist Physical - Constitutional Vitals: Temp Pulse Resp BP Pulse Ox 97.8 F 52 L 20 98/66 93 09/11/21 11:30 09/11/21 11:30 09/11/21 11:30 09/11/21 11:30 09/11/21 11:30 General appearance: Present: no acute distress, well-nourished - EENT Eyes: Present: PERRL ENT: hearing intact - Neck Neck: Present: supple - Respiratory Respiratory effort: normal Respiratory: bilateral: diminished - Cardiovascular Rhythm: regular Heart Sounds: Present: S1 & S2 - Extremities Extremities: no ischemia Peripheral Pulses: within normal limits - Abdominal General gastrointestinal: soft, non-tender, non-distended - Integumentary Integumentary: Present: clear, dry - Psychiatric Psychiatric: cooperative - Neurologic Neurologic: CNII-XII intact Results - Labs CBC & Chem 7: 09/09/21 04:21 09/11/21 07:31 Labs: Laboratory Last Values WBC 8.1 K/mm3 (4.5-11.0) 09/09/21 04:21 RBC 4.45 M/mm3 (3.65-5.03) 09/09/21 04:21 Hgb 13.8 gm/dl (11.8-15.2) 09/09/21 04:21 Hct 42.1 % (35.5-45.6) 09/09/21 04:21 MCV 95 fl (84-94) H 09/09/21 04:21 MCH 31 pg (28-32) 09/09/21 04:21 MCHC 33 % (32-34) 09/09/21 04:21 RDW 12.8 % (13.2-15.2) L 09/09/21 04:21 Plt Count 398 K/mm3 (140-440) 09/09/21 04:21 Lymph % (Auto) 8.4 % (13.4-35.0) L 09/09/21 04:21 [place] % (Auto) 7.8 % (0.0-7.3) H 09/09/21 04:21 Eos % (Auto) 0.0 % (0.0-4.3) 09/09/21 04:21 Baso % (Auto) 0.1 % (0.0-1.8) 09/09/21 04:21 Lymph # (Auto) 0.7 K/mm3 (1.2-5.4) L 09/09/21 04:21 [place] # (Auto) 0.6 K/mm3 (0.0-0.8) 09/09/21 04:21 Eos # (Auto) 0.0 K/mm3 (0.0-0.4) 09/09/21 04:21 Baso # (Auto) 0.0 K/mm3 (0.0-0.1) 09/09/21 04:21 Seg Neutrophils % 83.7 % (40.0-70.0) H 09/09/21 04:21 Seg Neutrophils # 6.8 K/mm3 (1.8-7.7) 09/09/21 04:21 D-Dimer 571.53 ng/mlDDU (0-234) H 09/07/21 22:50 Sodium 139 mmol/L (137-145) 09/11/21 07:31 Potassium 4.3 mmol/L (3.6-5.0) 09/11/21 07:31 Chloride 105.4 mmol/L (98-107) 09/11/21 07:31 Carbon Dioxide 23 mmol/L (22-30) 09/11/21 07:31 Anion Gap 15 mmol/L 09/11/21 07:31 BUN 18 mg/dL (9-20) 09/11/21 07:31 Creatinine 0.6 mg/dL (0.8-1.3) L 09/11/21 07:31 Estimated GFR > 60 ml/min 09/11/21 07:31 BUN/Creatinine Ratio 30 % 09/11/21 07:31 Glucose 247 mg/dL (75-100) H 09/11/21 07:31 Lactic Acid 1.40 mmol/L (0.7-2.0) 09/08/21 02:04 Calcium 8.8 mg/dL (8.4-10.2) 09/11/21 07:31 Ferritin 1159.0 ng/mL (30.0-300.0) H 09/07/21 22:50 Total Bilirubin 0.30 mg/dL (0.1-1.2) 09/11/21 07:31 AST 24 units/L (5-40) 09/11/21 07:31 ALT 73 units/L (7-56) H 09/11/21 07:31 Alkaline Phosphatase 91 units/L (35-129) 09/11/21 07:31 Lactate Dehydrogenase 359 units/L (91-180) H 09/07/21 22:50 C-Reactive Protein 13.00 mg/dL (0.00-1.30) H 09/07/21 22:50 Total Protein 6.7 g/dL (6.3-8.2) 09/11/21 07:31 Albumin 3.2 g/dL (3.9-5) L 09/11/21 07:31 Albumin/Globulin Ratio 0.9 % 09/11/21 07:31 Procalcitonin < 0.05 ng/mL (<0.15) 09/07/21 22:50 Coronavirus (PCR) Positive (Negative) A 09/08/21 08:27 Microbiology: Microbiology 09/07/21 22:50 Peripheral/Venous Blood Culture - Preliminary NO GROWTH AFTER 72 HOURS 09/07/21 23:52 Peripheral/Venous Blood Culture - Preliminary NO GROWTH AFTER 72 HOURS Karimi/IV: Voiding Method Toilet Active Medications - Current Medications Current Medications: Generic Name Dose Route Start Last Admin Trade Name Freq PRN Reason Stop Dose Admin Acetaminophen 650 mg 09/08/21 01:14 Acetaminophen 325 Mg Tab PO Q4H PRN Pain MILD(1-3)/Fever >100.5/NEWELL Albuterol 2.5 mg 09/10/21 13:00 Albuterol 2.5 Mg/3 Ml Nebu IH Q4HRT PRN Shortness Of Breath Ascorbic Acid 500 mg 09/08/21 10:00 09/11/21 09:30 Ascorbic Acid 500 Mg Tab PO 500 mg BID SWATHI Administration Cholecalciferol 1,000 unit 09/08/21 10:00 09/11/21 09:31 Cholecalciferol (Vit D3) 1000 Unit (25 Mcg) Tab PO 1,000 unit DAILY SWATHI Administration Dexamethasone 6 mg 09/08/21 10:00 09/11/21 09:31 Dexamethasone 4 Mg/Ml Vial IV 09/16/21 10:01 6 mg DAILY SWATHI Administration Famotidine 20 mg 09/08/21 10:00 09/11/21 09:31 Famotidine 20 Mg Tab PO 20 mg BID SWATHI Administration Heparin Sodium (Porcine) 5,000 unit 09/08/21 06:00 09/11/21 05:08 Heparin 5,000 Unit/1 Ml Vial SUB-Q 5,000 unit Q8HR SWATHI Administration Hydromorphone HCl 0.5 mg 09/08/21 01:14 Hydromorphone 1 Mg/1 Ml Inj IV Q3H PRN Pain , Severe (7-10) REMDESIVIR 100 mg/ Sodium 250 mls @ 500 mls/hr 09/09/21 21:00 09/10/21 22:16 Chloride IV 09/12/21 21:29 500 mls/hr Q24HR@2100 SWATHI Administration Morphine Sulfate 2 mg 09/08/21 01:14 Morphine 2 Mg/1 Ml Inj IV Q4H PRN Pain, Moderate (4-6) Ondansetron HCl 4 mg 09/08/21 01:14 Ondansetron 4 Mg/2 Ml Inj IV Q8H PRN Nausea And Vomiting Sodium Chloride 10 ml 09/08/21 10:00 09/11/21 09:31 Sodium Chloride 0.9% 10 Ml Flush Syringe IV 10 ml BID SWATHI Administration Sodium Chloride 10 ml 09/08/21 01:14 Sodium Chloride 0.9% 10 Ml Flush Syringe IV PRN PRN LINE FLUSH Sodium Chloride 50 ml 09/08/21 21:00 09/10/21 22:15 Sodium Chloride 0.9% 50 Ml Ivpb IV 09/12/21 21:01 50 ml Q24HR@2100 SWATHI Administration Zinc Sulfate 220 mg 09/08/21 10:00 09/11/21 09:31 Zinc Sulfate 220 Mg Cap PO 220 mg BID SWATHI Administration
[2021-09-11] MEDS: REMDESIVIR 100 MG in SODIUM CHLORIDE 0.9% 250ML 250 ML IV SCH (22:36)
[2021-09-11] MEDS: SODIUM CHLORIDE 0.9% 50 ML IVPB IV SCH (22:37)
[2021-09-12] MEDS: HEPARIN 5,000 UNIT/1 ML VIAL SUB-Q SCH ×3 (06:16→22:17)
[2021-09-12] MEDS: ASCORBIC ACID 500 MG TAB PO SCH ×2 (10:26→22:17)
[2021-09-12] MEDS: CHOLECALCIFEROL (VIT D3) 1000 UNIT (25 mcg) TAB PO SCH (10:26)
[2021-09-12] MEDS: FAMOTIDINE 20 MG TAB PO SCH ×2 (10:26→22:17)
[2021-09-12] MEDS: DEXAMETHASONE 4 MG TAB PO SCH (10:26)
[2021-09-12] MEDS: ZINC SULFATE 220 MG CAP PO SCH ×2 (10:26→22:17)
[2021-09-12] MEDS: SODIUM CHLORIDE 0.9% 1000 ML 1,000 ML IV SCH ×2 (10:27→23:51)
--- NOTE | 2021-09-12 12:50 | Progress Note ---
Assessment and Plan - Patient Problems (1) Acute respiratory failure Current Visit: Yes Status: Acute Qualifiers: Respiratory failure complication: hypoxia Qualified Code(s): J96.01 - Acute respiratory failure with hypoxia Plan to address problem: Supplemental oxygen, pulse oximetry, nebulizer therapy, pulmonary toilet. (2) Pneumonia Current Visit: Yes Status: Acute Plan to address problem: Pneumonia protocol: Chest x-ray, CBC, CMP, IV antibiotic therapy, supplemental oxygen, pulse oximetry, pulmonary toilet, blood culture. (3) Coronavirus infection Current Visit: Yes Status: Acute Plan to address problem: Groin rash protocol: IV steroid therapy, IV antibiotic therapy, vitamin C therapy, vitamin D therapy, zinc therapy, supplemental oxygen. Remdesivir therapy (4) DVT prophylaxis Current Visit: Yes Status: Acute Plan to address problem: SCD to bilateral lower extremities while in bed, prophylactic anticoagulation (5) Advance care planning Current Visit: Yes Status: Acute Plan to address problem: Disease education conducted, care plan discussed, diagnosis discussed, prognosis discussed, patient is full code, patient acknowledges understanding and agreement with care plan, +30 minutes (6) COVID-19 vaccination not done Current Visit: Yes Status: Acute Plan to address problem: Patient counseled. History Interval history: 46 YO Male HD #4 with Coronavirus Infection currently undergoing treatment with remdesivir day 3 of 4, Pneumonia. Patient rested comfortably overnight. No reported nursing events. Patient denies pain. Patient symptoms improved. Patient remains on supplemental oxygen via nasal cannula. Patient continues to desaturate with ambulation. D/C planning in am. Hospitalist Physical - Constitutional Vitals: Temp Pulse Resp BP Pulse Ox 97.4 F L 45 L 16 99/69 94 09/12/21 03:41 09/12/21 03:41 09/12/21 03:41 09/12/21 03:41 09/12/21 03:41 General appearance: Present: no acute distress, well-nourished - EENT Eyes: Present: PERRL ENT: hearing intact - Neck Neck: Present: supple - Respiratory Respiratory effort: normal Respiratory: bilateral: CTA - Cardiovascular Rhythm: regular Heart Sounds: Present: S1 & S2 - Extremities Extremities: no ischemia Peripheral Pulses: within normal limits - Abdominal General gastrointestinal: soft, non-tender, non-distended - Integumentary Integumentary: Present: clear, dry - Psychiatric Psychiatric: cooperative - Neurologic Neurologic: CNII-XII intact Results - Labs CBC & Chem 7: 09/09/21 04:21 09/11/21 07:31 Labs: Laboratory Last Values WBC 8.1 K/mm3 (4.5-11.0) 09/09/21 04:21 RBC 4.45 M/mm3 (3.65-5.03) 09/09/21 04:21 Hgb 13.8 gm/dl (11.8-15.2) 09/09/21 04:21 Hct 42.1 % (35.5-45.6) 09/09/21 04:21 MCV 95 fl (84-94) H 09/09/21 04:21 MCH 31 pg (28-32) 09/09/21 04:21 MCHC 33 % (32-34) 09/09/21 04:21 RDW 12.8 % (13.2-15.2) L 09/09/21 04:21 Plt Count 398 K/mm3 (140-440) 09/09/21 04:21 Lymph % (Auto) 8.4 % (13.4-35.0) L 09/09/21 04:21 [place] % (Auto) 7.8 % (0.0-7.3) H 09/09/21 04:21 Eos % (Auto) 0.0 % (0.0-4.3) 09/09/21 04:21 Baso % (Auto) 0.1 % (0.0-1.8) 09/09/21 04:21 Lymph # (Auto) 0.7 K/mm3 (1.2-5.4) L 09/09/21 04:21 [place] # (Auto) 0.6 K/mm3 (0.0-0.8) 09/09/21 04:21 Eos # (Auto) 0.0 K/mm3 (0.0-0.4) 09/09/21 04:21 Baso # (Auto) 0.0 K/mm3 (0.0-0.1) 09/09/21 04:21 Seg Neutrophils % 83.7 % (40.0-70.0) H 09/09/21 04:21 Seg Neutrophils # 6.8 K/mm3 (1.8-7.7) 09/09/21 04:21 D-Dimer 571.53 ng/mlDDU (0-234) H 09/07/21 22:50 Sodium 139 mmol/L (137-145) 09/11/21 07:31 Potassium 4.3 mmol/L (3.6-5.0) 09/11/21 07:31 Chloride 105.4 mmol/L (98-107) 09/11/21 07:31 Carbon Dioxide 23 mmol/L (22-30) 09/11/21 07:31 Anion Gap 15 mmol/L 09/11/21 07:31 BUN 18 mg/dL (9-20) 09/11/21 07:31 Creatinine 0.6 mg/dL (0.8-1.3) L 09/11/21 07:31 Estimated GFR > 60 ml/min 09/11/21 07:31 BUN/Creatinine Ratio 30 % 09/11/21 07:31 Glucose 247 mg/dL (75-100) H 09/11/21 07:31 Lactic Acid 1.40 mmol/L (0.7-2.0) 09/08/21 02:04 Calcium 8.8 mg/dL (8.4-10.2) 09/11/21 07:31 Ferritin 1159.0 ng/mL (30.0-300.0) H 09/07/21 22:50 Total Bilirubin 0.30 mg/dL (0.1-1.2) 09/11/21 07:31 AST 24 units/L (5-40) 09/11/21 07:31 ALT 73 units/L (7-56) H 09/11/21 07:31 Alkaline Phosphatase 91 units/L (35-129) 09/11/21 07:31 Lactate Dehydrogenase 359 units/L (91-180) H 09/07/21 22:50 C-Reactive Protein 13.00 mg/dL (0.00-1.30) H 09/07/21 22:50 Total Protein 6.7 g/dL (6.3-8.2) 09/11/21 07:31 Albumin 3.2 g/dL (3.9-5) L 09/11/21 07:31 Albumin/Globulin Ratio 0.9 % 09/11/21 07:31 Procalcitonin < 0.05 ng/mL (<0.15) 09/07/21 22:50 Coronavirus (PCR) Positive (Negative) A 09/08/21 08:27 Microbiology: Microbiology 09/07/21 22:50 Peripheral/Venous Blood Culture - Preliminary NO GROWTH AFTER 4 DAYS 09/07/21 23:52 Peripheral/Venous Blood Culture - Preliminary NO GROWTH AFTER 4 DAYS Kariim/IV: Voiding Method Toilet Active Medications - Current Medications Current Medications: Generic Name Dose Route Start Last Admin Trade Name Freq PRN Reason Stop Dose Admin Acetaminophen 650 mg 09/08/21 01:14 Acetaminophen 325 Mg Tab PO Q4H PRN Pain MILD(1-3)/Fever >100.5/NEWELL Albuterol 2.5 mg 09/10/21 13:00 Albuterol 2.5 Mg/3 Ml Nebu IH Q4HRT PRN Shortness Of Breath Ascorbic Acid 500 mg 09/08/21 10:00 09/12/21 10:26 Ascorbic Acid 500 Mg Tab PO 500 mg BID SWATHI Administration Cholecalciferol 1,000 unit 09/08/21 10:00 09/12/21 10:26 Cholecalciferol (Vit D3) 1000 Unit (25 Mcg) Tab PO 1,000 unit DAILY SWATHI Administration Dexamethasone 6 mg 09/12/21 10:00 09/12/21 10:26 Dexamethasone 4 Mg Tab PO 09/16/21 11:59 6 mg DAILY SWATHI Administration Famotidine 20 mg 09/08/21 10:00 09/12/21 10:26 Famotidine 20 Mg Tab PO 20 mg BID SWATHI Administration Guaifenesin 200 mg 09/12/21 08:24 Guaifenesin 100 Mg/5 Ml Oral Liqd PO Q4H PRN Cough Heparin Sodium (Porcine) 5,000 unit 09/08/21 06:00 09/12/21 06:16 Heparin 5,000 Unit/1 Ml Vial SUB-Q 5,000 unit Q8HR SWATHI Administration Hydromorphone HCl 0.5 mg 09/08/21 01:14 Hydromorphone 1 Mg/1 Ml Inj IV Q3H PRN Pain , Severe (7-10) REMDESIVIR 100 mg/ Sodium 250 mls @ 500 mls/hr 09/09/21 21:00 09/11/21 22:36 Chloride IV 09/12/21 21:29 500 mls/hr Q24HR@2100 SWATHI Administration Sodium Chloride 1,000 mls @ 75 mls/hr 09/12/21 08:30 09/12/21 10:27 Nacl 0.9% 1000 Ml IV 75 mls/hr DIRECT SWATHI Administration Morphine Sulfate 2 mg 09/08/21 01:14 Morphine 2 Mg/1 Ml Inj IV Q4H PRN Pain, Moderate (4-6) Ondansetron HCl 4 mg 09/08/21 01:14 Ondansetron 4 Mg/2 Ml Inj IV Q8H PRN Nausea And Vomiting Sodium Chloride 10 ml 09/08/21 10:00 09/12/21 10:26 Sodium Chloride 0.9% 10 Ml Flush Syringe IV 10 ml BID SWATHI Administration Sodium Chloride 10 ml 09/08/21 01:14 Sodium Chloride 0.9% 10 Ml Flush Syringe IV PRN PRN LINE FLUSH Sodium Chloride 50 ml 09/08/21 21:00 09/11/21 22:37 Sodium Chloride 0.9% 50 Ml Ivpb IV 09/12/21 21:01 50 ml Q24HR@2100 SWATHI Administration Zinc Sulfate 220 mg 09/08/21 10:00 09/12/21 10:26 Zinc Sulfate 220 Mg Cap PO 220 mg BID SWATHI Administration Nutrition/Malnutrition Assess - Dietary Evaluation Nutrition/Malnutrition Findings: Nutrition Notes Start: 09/12/21 10:01 Freq: Status: Active Protocol: Document 09/12/21 10:01 PAN (Rec: 09/12/21 10:31 PAN [id number]) Nutrition Notes Need for Assessment generated from: Low BMI Initial or Follow up Assessment Current Diagnosis Respiratory Failure Other Pertinent Diagnosis COVID-19, Pneumonia. Current Diet Cardiac Diet (since B 09/08). Labs/Tests 09/11: Crea 0.6, Glu 247. Pertinent Medications 09/12: Vit C, Vit D3, ZnSO4, others nutritionally unremarkable. Height 5 ft 9 in Weight 69.1 kg [place] Body Weight (kg) 72.72 BMI 22.4 Intake Prior to Admission Good Weight change and time frame Pt states not having loss body weight [employer]. Subjective/Other Information RD consult for Low BMI assessment. Low BMI was not a valid diagnosis. Pt's actual body weight is WNL (69.1 Kg) revised by RN over the phone, not 25.1 Kg as reported. No report available on Pt's PO intake of meals at the time. Percent of energy/protein needs met: Prescribed Cardiac Diet provides for energy/protein needs (2,230 Kcal/85 g) during LOS. Burn Absent Trauma Absent GI Symptoms None Food Allergy No Skin Integrity/Comment Clear, warm, dry. Minimum of two criteria No Is patient on ventilator? No Is Patient Ambulatory and/or Out of Bed Yes REE-([place]-St. Jeor-ambulatory/OOB) [ [id number]] Kcal/Kg value to use for calculation 20 Approximate Energy Requirements Using 1382 kcal/Kg Calculation Used for Recommendations Kcal/kg Additional Notes 15-20 Kcal/Kg ABW (70-80% of EEN). Protein: 1.2-2 g/Kg; 83-138 g/ day. Fluids: 1 ml/Kcal, or as per MD. Nutrition Intervention Follow-Up By: 09/19/21 Additional Comments Continue monitoring food tolerance, %PO intake of meals , and BM.
[2021-09-12] MEDS: guaiFENesin 100 MG/5 ML ORAL LIQD PO PRN (15:30)
[2021-09-12] MEDS: REMDESIVIR 100 MG in SODIUM CHLORIDE 0.9% 250ML 250 ML IV SCH (22:16)
[2021-09-12] MEDS: SODIUM CHLORIDE 0.9% 50 ML IVPB IV SCH (22:17)
[2021-09-13] MEDS: HEPARIN 5,000 UNIT/1 ML VIAL SUB-Q SCH ×3 (05:42→22:18)
[2021-09-13] MEDS: guaiFENesin 100 MG/5 ML ORAL LIQD PO PRN (05:51)
[2021-09-13] MEDS: DEXAMETHASONE 4 MG TAB PO SCH (09:30)
[2021-09-13] MEDS: FAMOTIDINE 20 MG TAB PO SCH ×2 (09:30→22:18)
[2021-09-13] MEDS: CHOLECALCIFEROL (VIT D3) 1000 UNIT (25 mcg) TAB PO SCH (09:31)
[2021-09-13] MEDS: ASCORBIC ACID 500 MG TAB PO SCH ×2 (09:31→22:19)
[2021-09-13] MEDS: ZINC SULFATE 220 MG CAP PO SCH ×2 (09:31→22:19)
[2021-09-13] MEDS ORDERED: INSULIN LISPRO 100 UNIT/ML SUB-Q ONE (18:22)
[2021-09-13] MEDS: INSULIN LISPRO 100 UNIT/ML SUB-Q SCH ×2 (18:42→23:23)
[2021-09-14] MEDS: HEPARIN 5,000 UNIT/1 ML VIAL SUB-Q SCH ×3 (06:37→22:59)
[2021-09-14] MEDS: INSULIN LISPRO 100 UNIT/ML SUB-Q SCH ×3 (08:30→18:40)
[2021-09-14] MEDS: DEXAMETHASONE 4 MG TAB PO SCH (09:02)
[2021-09-14] MEDS: FAMOTIDINE 20 MG TAB PO SCH ×2 (09:02→22:59)
[2021-09-14] MEDS: ZINC SULFATE 220 MG CAP PO SCH ×2 (09:02→22:59)
[2021-09-14] MEDS: ASCORBIC ACID 500 MG TAB PO SCH ×2 (09:02→22:59)
[2021-09-14] MEDS: CHOLECALCIFEROL (VIT D3) 1000 UNIT (25 mcg) TAB PO SCH (09:03)
--- NOTE | 2021-09-14 10:57 | Progress Note ---
Assessment and Plan - Patient Problems (1) Acute respiratory failure Current Visit: Yes Status: Acute Qualifiers: Respiratory failure complication: hypoxia Qualified Code(s): J96.01 - Acute respiratory failure with hypoxia Plan to address problem: Supplemental oxygen, pulse oximetry, nebulizer therapy, pulmonary toilet. (2) Pneumonia Current Visit: Yes Status: Acute Plan to address problem: Pneumonia protocol: Chest x-ray, CBC, CMP, IV antibiotic therapy, supplemental oxygen, pulse oximetry, pulmonary toilet, blood culture. (3) Coronavirus infection Current Visit: Yes Status: Acute Plan to address problem: Groin rash protocol: IV steroid therapy, IV antibiotic therapy, vitamin C therapy, vitamin D therapy, zinc therapy, supplemental oxygen. Remdesivir therapy (4) DVT prophylaxis Current Visit: Yes Status: Acute Plan to address problem: SCD to bilateral lower extremities while in bed, prophylactic anticoagulation (5) Advance care planning Current Visit: Yes Status: Acute Plan to address problem: Disease education conducted, care plan discussed, diagnosis discussed, prognosis discussed, patient is full code, patient acknowledges understanding and agreement with care plan, +30 minutes (6) COVID-19 vaccination not done Current Visit: Yes Status: Acute Plan to address problem: Patient counseled. History Interval history: 46 YO Male HD #5 with Coronavirus Infection currently undergoing treatment with remdesivir day 4 of 4, Pneumonia. Patient rested comfortably overnight. No reported nursing events. Patient denies pain. Patient symptoms improved. Patient remains on supplemental oxygen via nasal cannula. Patient continues to desaturate with ambulation. D/C planning in am. Hospitalist Physical - Constitutional Vitals: Temp Pulse Resp BP Pulse Ox 97.7 F 50 L 18 101/62 97 09/13/21 22:35 09/13/21 22:35 09/13/21 22:35 09/13/21 22:35 09/14/21 02:00 General appearance: Present: no acute distress, well-nourished - EENT Eyes: Present: PERRL ENT: hearing intact - Neck Neck: Present: supple - Respiratory Respiratory effort: labored Respiratory: bilateral: diminished, rhonchi - Cardiovascular Rhythm: regular Heart Sounds: Present: S1 & S2 Peripheral Pulses: within normal limits - Abdominal General gastrointestinal: soft, non-tender, non-distended - Integumentary Integumentary: Present: clear, dry - Psychiatric Psychiatric: appropriate mood/affect, cooperative - Neurologic Neurologic: CNII-XII intact Results - Labs CBC & Chem 7: 09/09/21 04:21 09/11/21 07:31 Labs: Laboratory Last Values WBC 8.1 K/mm3 (4.5-11.0) 09/09/21 04:21 RBC 4.45 M/mm3 (3.65-5.03) 09/09/21 04:21 Hgb 13.8 gm/dl (11.8-15.2) 09/09/21 04:21 Hct 42.1 % (35.5-45.6) 09/09/21 04:21 MCV 95 fl (84-94) H 09/09/21 04:21 MCH 31 pg (28-32) 09/09/21 04:21 MCHC 33 % (32-34) 09/09/21 04:21 RDW 12.8 % (13.2-15.2) L 09/09/21 04:21 Plt Count 398 K/mm3 (140-440) 09/09/21 04:21 Lymph % (Auto) 8.4 % (13.4-35.0) L 09/09/21 04:21 [place] % (Auto) 7.8 % (0.0-7.3) H 09/09/21 04:21 Eos % (Auto) 0.0 % (0.0-4.3) 09/09/21 04:21 Baso % (Auto) 0.1 % (0.0-1.8) 09/09/21 04:21 Lymph # (Auto) 0.7 K/mm3 (1.2-5.4) L 09/09/21 04:21 [place] # (Auto) 0.6 K/mm3 (0.0-0.8) 09/09/21 04:21 Eos # (Auto) 0.0 K/mm3 (0.0-0.4) 09/09/21 04:21 Baso # (Auto) 0.0 K/mm3 (0.0-0.1) 09/09/21 04:21 Seg Neutrophils % 83.7 % (40.0-70.0) H 09/09/21 04:21 Seg Neutrophils # 6.8 K/mm3 (1.8-7.7) 09/09/21 04:21 D-Dimer 571.53 ng/mlDDU (0-234) H 09/07/21 22:50 Sodium 139 mmol/L (137-145) 09/11/21 07:31 Potassium 4.3 mmol/L (3.6-5.0) 09/11/21 07:31 Chloride 105.4 mmol/L (98-107) 09/11/21 07:31 Carbon Dioxide 23 mmol/L (22-30) 09/11/21 07:31 Anion Gap 15 mmol/L 09/11/21 07:31 BUN 18 mg/dL (9-20) 09/11/21 07:31 Creatinine 0.6 mg/dL (0.8-1.3) L 09/11/21 07:31 Estimated GFR > 60 ml/min 09/11/21 07:31 BUN/Creatinine Ratio 30 % 09/11/21 07:31 Glucose 247 mg/dL (75-100) H 09/11/21 07:31 POC Glucose 220 mg/dL (70-105) H 09/14/21 07:51 Lactic Acid 1.40 mmol/L (0.7-2.0) 09/08/21 02:04 Calcium 8.8 mg/dL (8.4-10.2) 09/11/21 07:31 Ferritin 1159.0 ng/mL (30.0-300.0) H 09/07/21 22:50 Total Bilirubin 0.30 mg/dL (0.1-1.2) 09/11/21 07:31 AST 24 units/L (5-40) 09/11/21 07:31 ALT 73 units/L (7-56) H 09/11/21 07:31 Alkaline Phosphatase 91 units/L (35-129) 09/11/21 07:31 Lactate Dehydrogenase 359 units/L (91-180) H 09/07/21 22:50 C-Reactive Protein 13.00 mg/dL (0.00-1.30) H 09/07/21 22:50 Total Protein 6.7 g/dL (6.3-8.2) 09/11/21 07:31 Albumin 3.2 g/dL (3.9-5) L 09/11/21 07:31 Albumin/Globulin Ratio 0.9 % 09/11/21 07:31 Procalcitonin < 0.05 ng/mL (<0.15) 09/07/21 22:50 Coronavirus (PCR) Positive (Negative) A 09/08/21 08:27 Microbiology: Microbiology 09/07/21 22:50 Peripheral/Venous Blood Culture - Final NO GROWTH AFTER 5 DAYS 09/07/21 23:52 Peripheral/Venous Blood Culture - Final NO GROWTH AFTER 5 DAYS Karimi/IV: Voiding Method Urinal Active Medications - Current Medications Current Medications: Generic Name Dose Route Start Last Admin Trade Name Freq PRN Reason Stop Dose Admin Acetaminophen 650 mg 09/08/21 01:14 Acetaminophen 325 Mg Tab PO Q4H PRN Pain MILD(1-3)/Fever >100.5/NEWELL Albuterol 2.5 mg 09/10/21 13:00 Albuterol 2.5 Mg/3 Ml Nebu IH Q4HRT PRN Shortness Of Breath Ascorbic Acid 500 mg 09/08/21 10:00 09/14/21 09:02 Ascorbic Acid 500 Mg Tab PO 500 mg BID SWATHI Administration Cholecalciferol 1,000 unit 09/08/21 10:00 09/14/21 09:03 Cholecalciferol (Vit D3) 1000 Unit (25 Mcg) Tab PO 1,000 unit DAILY SWATHI Administration Dexamethasone 6 mg 09/12/21 10:00 09/14/21 09:02 Dexamethasone 4 Mg Tab PO 09/16/21 11:59 6 mg DAILY SWATHI Administration Famotidine 20 mg 09/08/21 10:00 09/14/21 09:02 Famotidine 20 Mg Tab PO 20 mg BID SWATHI Administration Guaifenesin 200 mg 09/12/21 08:24 09/13/21 05:51 Guaifenesin 100 Mg/5 Ml Oral Liqd PO 200 mg Q4H PRN Administration Cough Heparin Sodium (Porcine) 5,000 unit 09/08/21 06:00 09/14/21 06:37 Heparin 5,000 Unit/1 Ml Vial SUB-Q 5,000 unit Q8HR SWATHI Administration Hydromorphone HCl 0.5 mg 09/08/21 01:14 Hydromorphone 1 Mg/1 Ml Inj IV Q3H PRN Pain , Severe (7-10) Sodium Chloride 1,000 mls @ 75 mls/hr 09/12/21 08:30 09/12/21 23:51 Nacl 0.9% 1000 Ml IV 75 mls/hr DIRECT SWATHI Administration Insulin Human Lispro 0 unit 09/13/21 18:15 09/13/21 23:23 Insulin Lispro 100 Unit/Ml SUB-Q 8 unit ACHS SWATHI Administration Protocol Morphine Sulfate 2 mg 09/08/21 01:14 Morphine 2 Mg/1 Ml Inj IV Q4H PRN Pain, Moderate (4-6) Ondansetron HCl 4 mg 09/08/21 01:14 Ondansetron 4 Mg/2 Ml Inj IV Q8H PRN Nausea And Vomiting Sodium Chloride 10 ml 09/08/21 10:00 09/13/21 22:19 Sodium Chloride 0.9% 10 Ml Flush Syringe IV 10 ml BID SWATHI Administration Sodium Chloride 10 ml 09/08/21 01:14 Sodium Chloride 0.9% 10 Ml Flush Syringe IV PRN PRN LINE FLUSH Zinc Sulfate 220 mg 09/08/21 10:00 09/14/21 09:02 Zinc Sulfate 220 Mg Cap PO 220 mg BID SWATHI Administration Nutrition/Malnutrition Assess - Dietary Evaluation Nutrition/Malnutrition Findings: Nutrition Notes Start: 09/12/21 10:01 Freq: Status: Active Protocol: Document 09/12/21 10:01 PAN (Rec: 09/12/21 10:31 PAN [id number]) Nutrition Notes Need for Assessment generated from: Low BMI Initial or Follow up Assessment Current Diagnosis Respiratory Failure Other Pertinent Diagnosis COVID-19, Pneumonia. Current Diet Cardiac Diet (since B 09/08). Labs/Tests 09/11: Crea 0.6, Glu 247. Pertinent Medications 09/12: Vit C, Vit D3, ZnSO4, others nutritionally unremarkable. Height 5 ft 9 in Weight 69.1 kg [place] Body Weight (kg) 72.72 BMI 22.4 Intake Prior to Admission Good Weight change and time frame Pt states not having loss body weight [employer]ERSON. Subjective/Other Information RD consult for Low BMI assessment. Low BMI was not a valid diagnosis. Pt's actual body weight is WNL (69.1 Kg) revised by RN over the phone, not 25.1 Kg as reported. No report available on Pt's PO intake of meals at the time. Percent of energy/protein needs met: Prescribed Cardiac Diet provides for energy/protein needs (2,230 Kcal/85 g) during LOS. Burn Absent Trauma Absent GI Symptoms None Food Allergy No Skin Integrity/Comment Clear, warm, dry. Minimum of two criteria No Is patient on ventilator? No Is Patient Ambulatory and/or Out of Bed Yes REE-([place]-St. Jeor-ambulatory/OOB) [ 79 NUTR.MSJOOB] Kcal/Kg value to use for calculation 20 Approximate Energy Requirements Using 1382 kcal/Kg Calculation Used for Recommendations Kcal/kg Additional Notes 15-20 Kcal/Kg ABW (70-80% of EEN). Protein: 1.2-2 g/Kg; 83-138 g/ day. Fluids: 1 ml/Kcal, or as per MD. Nutrition Intervention Follow-Up By: 09/19/21 Additional Comments Continue monitoring food tolerance, %PO intake of meals , and BM.
[2021-09-14] MEDS: SODIUM CHLORIDE 0.9% 1000 ML 1,000 ML IV SCH (13:36)
[2021-09-15] MEDS: INSULIN LISPRO 100 UNIT/ML SUB-Q SCH ×5 (00:09→18:25)
[2021-09-15] MEDS: HEPARIN 5,000 UNIT/1 ML VIAL SUB-Q SCH ×3 (06:15→22:27)
[2021-09-15] MEDS: SODIUM CHLORIDE 0.9% 1000 ML 1,000 ML IV SCH (06:16)
[2021-09-15] MEDS: FAMOTIDINE 20 MG TAB PO SCH ×2 (09:18→22:27)
[2021-09-15] MEDS: ZINC SULFATE 220 MG CAP PO SCH ×2 (09:18→22:27)
[2021-09-15] MEDS: DEXAMETHASONE 4 MG TAB PO SCH (09:18)
[2021-09-15] MEDS: ASCORBIC ACID 500 MG TAB PO SCH ×2 (09:18→22:27)
[2021-09-15] MEDS: CHOLECALCIFEROL (VIT D3) 1000 UNIT (25 mcg) TAB PO SCH (09:18)
[2021-09-15] MEDS ORDERED: INSULIN LISPRO 100 UNIT/ML SUB-Q SCH (12:00)
[2021-09-15] MEDS ORDERED: INSULIN LISPRO 100 UNIT/ML SUB-Q ONE (18:29)
--- NOTE | 2021-09-15 21:03 | Progress Note ---
Assessment and Plan - Patient Problems (1) Acute respiratory failure Current Visit: Yes Status: Acute Qualifiers: Respiratory failure complication: hypoxia Qualified Code(s): J96.01 - Acute respiratory failure with hypoxia Plan to address problem: Supplemental oxygen, pulse oximetry, nebulizer therapy, pulmonary toilet. (2) Pneumonia Current Visit: Yes Status: Acute Plan to address problem: Pneumonia protocol: Chest x-ray, CBC, CMP, IV antibiotic therapy, supplemental oxygen, pulse oximetry, pulmonary toilet, blood culture. (3) Coronavirus infection Current Visit: Yes Status: Acute Plan to address problem: Groin rash protocol: IV steroid therapy, IV antibiotic therapy, vitamin C therapy, vitamin D therapy, zinc therapy, supplemental oxygen. Remdesivir therapy (4) DVT prophylaxis Current Visit: Yes Status: Acute Plan to address problem: SCD to bilateral lower extremities while in bed, prophylactic anticoagulation (5) Advance care planning Current Visit: Yes Status: Acute Plan to address problem: Disease education conducted, care plan discussed, diagnosis discussed, prognosis discussed, patient is full code, patient acknowledges understanding and agreement with care plan, +30 minutes (6) COVID-19 vaccination not done Current Visit: Yes Status: Acute Plan to address problem: Patient counseled. History Interval history: 46 YO Male HD #6 with Coronavirus Infection, Pneumonia. Patient rested comfortably overnight. No reported nursing events. Patient denies pain. Patient symptoms improved. Patient remains on supplemental oxygen via nasal cannula. Patient continues to desaturate with ambulation. D/C planning in am. Hospitalist Physical - Constitutional Vitals: Temp Pulse Resp BP Pulse Ox 98.4 F 56 L 18 101/62 94 09/15/21 15:54 09/15/21 15:54 09/15/21 15:54 09/15/21 15:54 09/15/21 15:54 General appearance: Present: no acute distress, well-nourished - EENT Eyes: Present: PERRL, EOM intact ENT: hearing intact - Neck Neck: Present: supple - Respiratory Respiratory effort: normal Respiratory: bilateral: diminished - Cardiovascular Rhythm: regular Heart Sounds: Present: S1 & S2 - Extremities Extremities: pulses intact Peripheral Pulses: within normal limits - Abdominal General gastrointestinal: soft, non-tender, non-distended - Integumentary Integumentary: Present: clear, dry - Psychiatric Psychiatric: cooperative - Neurologic Neurologic: CNII-XII intact Results - Labs CBC & Chem 7: 09/09/21 04:21 09/15/21 17:58 Labs: Laboratory Last Values WBC 8.1 K/mm3 (4.5-11.0) 09/09/21 04:21 RBC 4.45 M/mm3 (3.65-5.03) 09/09/21 04:21 Hgb 13.8 gm/dl (11.8-15.2) 09/09/21 04:21 Hct 42.1 % (35.5-45.6) 09/09/21 04:21 MCV 95 fl (84-94) H 09/09/21 04:21 MCH 31 pg (28-32) 09/09/21 04:21 MCHC 33 % (32-34) 09/09/21 04:21 RDW 12.8 % (13.2-15.2) L 09/09/21 04:21 Plt Count 398 K/mm3 (140-440) 09/09/21 04:21 Lymph % (Auto) 8.4 % (13.4-35.0) L 09/09/21 04:21 [place] % (Auto) 7.8 % (0.0-7.3) H 09/09/21 04:21 Eos % (Auto) 0.0 % (0.0-4.3) 09/09/21 04:21 Baso % (Auto) 0.1 % (0.0-1.8) 09/09/21 04:21 Lymph # (Auto) 0.7 K/mm3 (1.2-5.4) L 09/09/21 04:21 [place] # (Auto) 0.6 K/mm3 (0.0-0.8) 09/09/21 04:21 Eos # (Auto) 0.0 K/mm3 (0.0-0.4) 09/09/21 04:21 Baso # (Auto) 0.0 K/mm3 (0.0-0.1) 09/09/21 04:21 Seg Neutrophils % 83.7 % (40.0-70.0) H 09/09/21 04:21 Seg Neutrophils # 6.8 K/mm3 (1.8-7.7) 09/09/21 04:21 D-Dimer 571.53 ng/mlDDU (0-234) H 09/07/21 22:50 Sodium 139 mmol/L (137-145) 09/11/21 07:31 Potassium 4.3 mmol/L (3.6-5.0) 09/11/21 07:31 Chloride 105.4 mmol/L (98-107) 09/11/21 07:31 Carbon Dioxide 23 mmol/L (22-30) 09/11/21 07:31 Anion Gap 15 mmol/L 09/11/21 07:31 BUN 18 mg/dL (9-20) 09/11/21 07:31 Creatinine 0.6 mg/dL (0.8-1.3) L 09/11/21 07:31 Estimated GFR > 60 ml/min 09/11/21 07:31 BUN/Creatinine Ratio 30 % 09/11/21 07:31 Glucose 448 mg/dL (75-100) H 09/15/21 17:58 POC Glucose 421 mg/dL (70-105) H 09/15/21 17:21 Lactic Acid 1.40 mmol/L (0.7-2.0) 09/08/21 02:04 Calcium 8.8 mg/dL (8.4-10.2) 09/11/21 07:31 Ferritin 1159.0 ng/mL (30.0-300.0) H 09/07/21 22:50 Total Bilirubin 0.30 mg/dL (0.1-1.2) 09/11/21 07:31 AST 24 units/L (5-40) 09/11/21 07:31 ALT 73 units/L (7-56) H 09/11/21 07:31 Alkaline Phosphatase 91 units/L (35-129) 09/11/21 07:31 Lactate Dehydrogenase 359 units/L (91-180) H 09/07/21 22:50 C-Reactive Protein 13.00 mg/dL (0.00-1.30) H 09/07/21 22:50 Total Protein 6.7 g/dL (6.3-8.2) 09/11/21 07:31 Albumin 3.2 g/dL (3.9-5) L 09/11/21 07:31 Albumin/Globulin Ratio 0.9 % 09/11/21 07:31 Procalcitonin < 0.05 ng/mL (<0.15) 09/07/21 22:50 Coronavirus (PCR) Positive (Negative) A 09/08/21 08:27 Karimi/IV: Voiding Method Urinal Active Medications - Current Medications Current Medications: Generic Name Dose Route Start Last Admin Trade Name Freq PRN Reason Stop Dose Admin Acetaminophen 650 mg 09/08/21 01:14 Acetaminophen 325 Mg Tab PO Q4H PRN Pain MILD(1-3)/Fever >100.5/NEWELL Albuterol 2.5 mg 09/10/21 13:00 Albuterol 2.5 Mg/3 Ml Nebu IH Q4HRT PRN Shortness Of Breath Ascorbic Acid 500 mg 09/08/21 10:00 09/15/21 09:18 Ascorbic Acid 500 Mg Tab PO 500 mg BID SWATHI Administration Cholecalciferol 1,000 unit 09/08/21 10:00 09/15/21 09:18 Cholecalciferol (Vit D3) 1000 Unit (25 Mcg) Tab PO 1,000 unit DAILY SWATHI Administration Dexamethasone 6 mg 09/12/21 10:00 09/15/21 09:18 Dexamethasone 4 Mg Tab PO 09/16/21 11:59 6 mg DAILY SWATHI Administration Famotidine 20 mg 09/08/21 10:00 09/15/21 09:18 Famotidine 20 Mg Tab PO 20 mg BID SWATHI Administration Guaifenesin 200 mg 09/12/21 08:24 09/13/21 05:51 Guaifenesin 100 Mg/5 Ml Oral Liqd PO 200 mg Q4H PRN Administration Cough Heparin Sodium (Porcine) 5,000 unit 09/08/21 06:00 09/15/21 13:30 Heparin 5,000 Unit/1 Ml Vial SUB-Q 5,000 unit Q8HR SWATHI Administration Hydromorphone HCl 0.5 mg 09/08/21 01:14 Hydromorphone 1 Mg/1 Ml Inj IV Q3H PRN Pain , Severe (7-10) Sodium Chloride 1,000 mls @ 75 mls/hr 09/12/21 08:30 09/15/21 06:16 Nacl 0.9% 1000 Ml IV 75 mls/hr DIRECT SWATHI Administration Insulin Human Lispro 0 unit 09/14/21 18:27 09/15/21 18:25 Insulin Lispro 100 Unit/Ml SUB-Q Not Given Q6HR [facility] Protocol Morphine Sulfate 2 mg 09/08/21 01:14 Morphine 2 Mg/1 Ml Inj IV Q4H PRN Pain, Moderate (4-6) Ondansetron HCl 4 mg 09/08/21 01:14 Ondansetron 4 Mg/2 Ml Inj IV Q8H PRN Nausea And Vomiting Sodium Chloride 10 ml 09/08/21 10:00 09/15/21 09:19 Sodium Chloride 0.9% 10 Ml Flush Syringe IV 10 ml BID SWATHI Administration Sodium Chloride 10 ml 09/08/21 01:14 Sodium Chloride 0.9% 10 Ml Flush Syringe IV PRN PRN LINE FLUSH Zinc Sulfate 220 mg 09/08/21 10:00 09/15/21 09:18 Zinc Sulfate 220 Mg Cap PO 220 mg BID SWATHI Administration Nutrition/Malnutrition Assess - Dietary Evaluation Nutrition/Malnutrition Findings: Nutrition Notes Start: 09/12/21 10:01 Freq: Status: Active Protocol: Document 09/12/21 10:01 PAN (Rec: 09/12/21 10:31 PAN [id number]) Nutrition Notes Need for Assessment generated from: Low BMI Initial or Follow up Assessment Current Diagnosis Respiratory Failure Other Pertinent Diagnosis COVID-19, Pneumonia. Current Diet Cardiac Diet (since B 09/08). Labs/Tests 09/11: Crea 0.6, Glu 247. Pertinent Medications 09/12: Vit C, Vit D3, ZnSO4, others nutritionally unremarkable. Height 5 ft 9 in Weight 69.1 kg [place] Body Weight (kg) 72.72 BMI 22.4 Intake Prior to Admission Good Weight change and time frame Pt states not having loss body weight [employer]. Subjective/Other Information RD consult for Low BMI assessment. Low BMI was not a valid diagnosis. Pt's actual body weight is WNL (69.1 Kg) revised by RN over the phone, not 25.1 Kg as reported. No report available on Pt's PO intake of meals at the time. Percent of energy/protein needs met: Prescribed Cardiac Diet provides for energy/protein needs (2,230 Kcal/85 g) during LOS. Burn Absent Trauma Absent GI Symptoms None Food Allergy No Skin Integrity/Comment Clear, warm, dry. Minimum of two criteria No Is patient on ventilator? No Is Patient Ambulatory and/or Out of Bed Yes REE-([place]-St. Jeor-ambulatory/OOB) [ 79 NUTR.MSJOOB] Kcal/Kg value to use for calculation 20 Approximate Energy Requirements Using 1382 kcal/Kg Calculation Used for Recommendations Kcal/kg Additional Notes 15-20 Kcal/Kg ABW (70-80% of EEN). Protein: 1.2-2 g/Kg; 83-138 g/ day. Fluids: 1 ml/Kcal, or as per MD. Nutrition Intervention Follow-Up By: 09/19/21 Additional Comments Continue monitoring food tolerance, %PO intake of meals , and BM.
--- NOTE | 2021-09-15 21:05 | Progress Note ---
Assessment and Plan - Patient Problems (1) Acute respiratory failure Current Visit: Yes Status: Acute Qualifiers: Respiratory failure complication: hypoxia Qualified Code(s): J96.01 - Acute respiratory failure with hypoxia Plan to address problem: Supplemental oxygen, pulse oximetry, nebulizer therapy, pulmonary toilet. (2) Pneumonia Current Visit: Yes Status: Acute Plan to address problem: Pneumonia protocol: Chest x-ray, CBC, CMP, IV antibiotic therapy, supplemental oxygen, pulse oximetry, pulmonary toilet, blood culture. (3) Coronavirus infection Current Visit: Yes Status: Acute Plan to address problem: Groin rash protocol: IV steroid therapy, IV antibiotic therapy, vitamin C therapy, vitamin D therapy, zinc therapy, supplemental oxygen. Remdesivir therapy (4) DVT prophylaxis Current Visit: Yes Status: Acute Plan to address problem: SCD to bilateral lower extremities while in bed, prophylactic anticoagulation (5) Advance care planning Current Visit: Yes Status: Acute Plan to address problem: Disease education conducted, care plan discussed, diagnosis discussed, prognosis discussed, patient is full code, patient acknowledges understanding and agreement with care plan, +30 minutes (6) COVID-19 vaccination not done Current Visit: Yes Status: Acute Plan to address problem: Patient counseled. History Interval history: 46 YO Male HD #7 with Coronavirus Infection, Pneumonia. Patient rested comfortably overnight. No reported nursing events. Patient denies pain. Patient symptoms improved. Patient remains on supplemental oxygen via nasal cannula. Patient continues to desaturate with ambulation. D/C planning in am. Hospitalist Physical - Constitutional Vitals: Temp Pulse Resp BP Pulse Ox 98.4 F 56 L 18 101/62 94 09/15/21 15:54 09/15/21 15:54 09/15/21 15:54 09/15/21 15:54 09/15/21 15:54 General appearance: Present: no acute distress, well-nourished - EENT Eyes: Present: PERRL ENT: hearing intact - Neck Neck: Present: supple - Respiratory Respiratory effort: normal Respiratory: bilateral: diminished - Cardiovascular Rhythm: regular Heart Sounds: Present: S1 & S2 Peripheral Pulses: within normal limits - Abdominal General gastrointestinal: soft, non-tender, non-distended - Integumentary Integumentary: Present: clear, dry - Psychiatric Psychiatric: appropriate mood/affect, cooperative - Neurologic Neurologic: CNII-XII intact Results - Labs CBC & Chem 7: 09/09/21 04:21 09/15/21 17:58 Labs: Laboratory Last Values WBC 8.1 K/mm3 (4.5-11.0) 09/09/21 04:21 RBC 4.45 M/mm3 (3.65-5.03) 09/09/21 04:21 Hgb 13.8 gm/dl (11.8-15.2) 09/09/21 04:21 Hct 42.1 % (35.5-45.6) 09/09/21 04:21 MCV 95 fl (84-94) H 09/09/21 04:21 MCH 31 pg (28-32) 09/09/21 04:21 MCHC 33 % (32-34) 09/09/21 04:21 RDW 12.8 % (13.2-15.2) L 09/09/21 04:21 Plt Count 398 K/mm3 (140-440) 09/09/21 04:21 Lymph % (Auto) 8.4 % (13.4-35.0) L 09/09/21 04:21 [place] % (Auto) 7.8 % (0.0-7.3) H 09/09/21 04:21 Eos % (Auto) 0.0 % (0.0-4.3) 09/09/21 04:21 Baso % (Auto) 0.1 % (0.0-1.8) 09/09/21 04:21 Lymph # (Auto) 0.7 K/mm3 (1.2-5.4) L 09/09/21 04:21 [place] # (Auto) 0.6 K/mm3 (0.0-0.8) 09/09/21 04:21 Eos # (Auto) 0.0 K/mm3 (0.0-0.4) 09/09/21 04:21 Baso # (Auto) 0.0 K/mm3 (0.0-0.1) 09/09/21 04:21 Seg Neutrophils % 83.7 % (40.0-70.0) H 09/09/21 04:21 Seg Neutrophils # 6.8 K/mm3 (1.8-7.7) 09/09/21 04:21 D-Dimer 571.53 ng/mlDDU (0-234) H 09/07/21 22:50 Sodium 139 mmol/L (137-145) 09/11/21 07:31 Potassium 4.3 mmol/L (3.6-5.0) 09/11/21 07:31 Chloride 105.4 mmol/L (98-107) 09/11/21 07:31 Carbon Dioxide 23 mmol/L (22-30) 09/11/21 07:31 Anion Gap 15 mmol/L 09/11/21 07:31 BUN 18 mg/dL (9-20) 09/11/21 07:31 Creatinine 0.6 mg/dL (0.8-1.3) L 09/11/21 07:31 Estimated GFR > 60 ml/min 09/11/21 07:31 BUN/Creatinine Ratio 30 % 09/11/21 07:31 Glucose 448 mg/dL (75-100) H 09/15/21 17:58 POC Glucose 421 mg/dL (70-105) H 09/15/21 17:21 Lactic Acid 1.40 mmol/L (0.7-2.0) 09/08/21 02:04 Calcium 8.8 mg/dL (8.4-10.2) 09/11/21 07:31 Ferritin 1159.0 ng/mL (30.0-300.0) H 09/07/21 22:50 Total Bilirubin 0.30 mg/dL (0.1-1.2) 09/11/21 07:31 AST 24 units/L (5-40) 09/11/21 07:31 ALT 73 units/L (7-56) H 09/11/21 07:31 Alkaline Phosphatase 91 units/L (35-129) 09/11/21 07:31 Lactate Dehydrogenase 359 units/L (91-180) H 09/07/21 22:50 C-Reactive Protein 13.00 mg/dL (0.00-1.30) H 09/07/21 22:50 Total Protein 6.7 g/dL (6.3-8.2) 09/11/21 07:31 Albumin 3.2 g/dL (3.9-5) L 09/11/21 07:31 Albumin/Globulin Ratio 0.9 % 09/11/21 07:31 Procalcitonin < 0.05 ng/mL (<0.15) 09/07/21 22:50 Coronavirus (PCR) Positive (Negative) A 09/08/21 08:27 Karimi/IV: Voiding Method Urinal Active Medications - Current Medications Current Medications: Generic Name Dose Route Start Last Admin Trade Name Freq PRN Reason Stop Dose Admin Acetaminophen 650 mg 09/08/21 01:14 Acetaminophen 325 Mg Tab PO Q4H PRN Pain MILD(1-3)/Fever >100.5/NEWELL Albuterol 2.5 mg 09/10/21 13:00 Albuterol 2.5 Mg/3 Ml Nebu IH Q4HRT PRN Shortness Of Breath Ascorbic Acid 500 mg 09/08/21 10:00 09/15/21 09:18 Ascorbic Acid 500 Mg Tab PO 500 mg BID SWATHI Administration Cholecalciferol 1,000 unit 09/08/21 10:00 09/15/21 09:18 Cholecalciferol (Vit D3) 1000 Unit (25 Mcg) Tab PO 1,000 unit DAILY SWATHI Administration Dexamethasone 6 mg 09/12/21 10:00 09/15/21 09:18 Dexamethasone 4 Mg Tab PO 09/16/21 11:59 6 mg DAILY SWATHI Administration Famotidine 20 mg 09/08/21 10:00 09/15/21 09:18 Famotidine 20 Mg Tab PO 20 mg BID SWATHI Administration Guaifenesin 200 mg 09/12/21 08:24 09/13/21 05:51 Guaifenesin 100 Mg/5 Ml Oral Liqd PO 200 mg Q4H PRN Administration Cough Heparin Sodium (Porcine) 5,000 unit 09/08/21 06:00 09/15/21 13:30 Heparin 5,000 Unit/1 Ml Vial SUB-Q 5,000 unit Q8HR SWATHI Administration Hydromorphone HCl 0.5 mg 09/08/21 01:14 Hydromorphone 1 Mg/1 Ml Inj IV Q3H PRN Pain , Severe (7-10) Sodium Chloride 1,000 mls @ 75 mls/hr 09/12/21 08:30 09/15/21 06:16 Nacl 0.9% 1000 Ml IV 75 mls/hr DIRECT SWATHI Administration Insulin Human Lispro 0 unit 09/14/21 18:27 09/15/21 18:25 Insulin Lispro 100 Unit/Ml SUB-Q Not Given Q6HR [facility] Protocol Morphine Sulfate 2 mg 09/08/21 01:14 Morphine 2 Mg/1 Ml Inj IV Q4H PRN Pain, Moderate (4-6) Ondansetron HCl 4 mg 09/08/21 01:14 Ondansetron 4 Mg/2 Ml Inj IV Q8H PRN Nausea And Vomiting Sodium Chloride 10 ml 09/08/21 10:00 09/15/21 09:19 Sodium Chloride 0.9% 10 Ml Flush Syringe IV 10 ml BID SWATHI Administration Sodium Chloride 10 ml 09/08/21 01:14 Sodium Chloride 0.9% 10 Ml Flush Syringe IV PRN PRN LINE FLUSH Zinc Sulfate 220 mg 09/08/21 10:00 09/15/21 09:18 Zinc Sulfate 220 Mg Cap PO 220 mg BID SWATHI Administration Nutrition/Malnutrition Assess - Dietary Evaluation Nutrition/Malnutrition Findings: Nutrition Notes Start: 09/12/21 10:01 Freq: Status: Active Protocol: Document 09/12/21 10:01 PAN (Rec: 09/12/21 10:31 PAN [id number]) Nutrition Notes Need for Assessment generated from: Low BMI Initial or Follow up Assessment Current Diagnosis Respiratory Failure Other Pertinent Diagnosis COVID-19, Pneumonia. Current Diet Cardiac Diet (since B 09/08). Labs/Tests 09/11: Crea 0.6, Glu 247. Pertinent Medications 09/12: Vit C, Vit D3, ZnSO4, others nutritionally unremarkable. Height 5 ft 9 in Weight 69.1 kg [place] Body Weight (kg) 72.72 BMI 22.4 Intake Prior to Admission Good Weight change and time frame Pt states not having loss body weight [place]. Subjective/Other Information RD consult for Low BMI assessment. Low BMI was not a valid diagnosis. Pt's actual body weight is WNL (69.1 Kg) revised by RN over the phone, not 25.1 Kg as reported. No report available on Pt's PO intake of meals at the time. Percent of energy/protein needs met: Prescribed Cardiac Diet provides for energy/protein needs (2,230 Kcal/85 g) during LOS. Burn Absent Trauma Absent GI Symptoms None Food Allergy No Skin Integrity/Comment Clear, warm, dry. Minimum of two criteria No Is patient on ventilator? No Is Patient Ambulatory and/or Out of Bed Yes REE-([place]-St. Jeor-ambulatory/OOB) [ 9.794 NUTR.MSJOOB] Kcal/Kg value to use for calculation 20 Approximate Energy Requirements Using 1382 kcal/Kg Calculation Used for Recommendations Kcal/kg Additional Notes 15-20 Kcal/Kg ABW (70-80% of EEN). Protein: 1.2-2 g/Kg; 83-138 g/ day. Fluids: 1 ml/Kcal, or as per MD. Nutrition Intervention Follow-Up By: 09/19/21 Additional Comments Continue monitoring food tolerance, %PO intake of meals , and BM.
[2021-09-16] MEDS: INSULIN LISPRO 100 UNIT/ML SUB-Q SCH ×4 (00:53→18:18)
[2021-09-16] MEDS: HEPARIN 5,000 UNIT/1 ML VIAL SUB-Q SCH ×3 (06:23→21:30)
[2021-09-16] MEDS: DEXAMETHASONE 4 MG TAB PO SCH (09:03)
[2021-09-16] MEDS: ASCORBIC ACID 500 MG TAB PO SCH ×2 (09:04→21:30)
[2021-09-16] MEDS: FAMOTIDINE 20 MG TAB PO SCH ×2 (09:04→21:31)
[2021-09-16] MEDS: CHOLECALCIFEROL (VIT D3) 1000 UNIT (25 mcg) TAB PO SCH (09:04)
[2021-09-16] MEDS: ZINC SULFATE 220 MG CAP PO SCH ×2 (09:04→21:30)
[2021-09-16] MEDS: SODIUM CHLORIDE 0.9% 1000 ML 1,000 ML IV SCH (21:29)
[2021-09-17] MEDS: INSULIN LISPRO 100 UNIT/ML SUB-Q SCH ×4 (02:17→17:55)
[2021-09-17] MEDS ORDERED: SODIUM CHLORIDE 0.9% 250ML 250 ML IV ONE (06:23)
[2021-09-17] MEDS: HEPARIN 5,000 UNIT/1 ML VIAL SUB-Q SCH ×3 (06:37→22:01)
[2021-09-17] MEDS: SODIUM CHLORIDE 0.9% 1000 ML 1,000 ML IV SCH ×2 (07:28→22:05)
[2021-09-17] MEDS: FAMOTIDINE 20 MG TAB PO SCH ×2 (12:18→22:01)
[2021-09-17] MEDS: ZINC SULFATE 220 MG CAP PO SCH ×2 (12:18→22:01)
[2021-09-17] MEDS: ASCORBIC ACID 500 MG TAB PO SCH ×2 (12:18→22:01)
[2021-09-17] MEDS: CHOLECALCIFEROL (VIT D3) 1000 UNIT (25 mcg) TAB PO SCH (12:18)
[2021-09-17] MEDS ORDERED: SODIUM CHLORIDE 0.9% 500 ML 500 ML IV ONE (13:00)
[2021-09-18] MEDS: INSULIN LISPRO 100 UNIT/ML SUB-Q SCH ×4 (01:34→18:04)
[2021-09-18] MEDS: HEPARIN 5,000 UNIT/1 ML VIAL SUB-Q SCH ×2 (05:59→16:44)
[2021-09-18] MEDS: ZINC SULFATE 220 MG CAP PO SCH (11:54)
[2021-09-18] MEDS: ASCORBIC ACID 500 MG TAB PO SCH (11:54)
[2021-09-18] MEDS: FAMOTIDINE 20 MG TAB PO SCH (11:54)
[2021-09-18] MEDS: CHOLECALCIFEROL (VIT D3) 1000 UNIT (25 mcg) TAB PO SCH (11:55)
[2021-09-18 18:43] VITALS: BP 89/58
--- NOTE | 2021-09-18 20:57 | Progress Note ---
Assessment and Plan - Patient Problems (1) Acute respiratory failure Current Visit: Yes Status: Acute Qualifiers: Respiratory failure complication: hypoxia Qualified Code(s): J96.01 - Acute respiratory failure with hypoxia Plan to address problem: Supplemental oxygen, pulse oximetry, nebulizer therapy, pulmonary toilet. (2) Pneumonia Current Visit: Yes Status: Acute Plan to address problem: Resolved (3) Coronavirus infection Current Visit: Yes Status: Acute Plan to address problem: Groin rash protocol: IV steroid therapy, IV antibiotic therapy, vitamin C therapy, vitamin D therapy, zinc therapy, supplemental oxygen. Remdesivir therapy (4) DVT prophylaxis Current Visit: Yes Status: Acute Plan to address problem: SCD to bilateral lower extremities while in bed, prophylactic anticoagulation (5) Advance care planning Current Visit: Yes Status: Acute Plan to address problem: Disease education conducted, care plan discussed, diagnosis discussed, prognosis discussed, patient is full code, patient acknowledges understanding and agreement with care plan, +30 minutes (6) COVID-19 vaccination not done Current Visit: Yes Status: Acute Plan to address problem: Patient counseled. History Interval history: 46 YO Male HD #8 with Coronavirus Infection, Pneumonia. Patient rested comfortably overnight. No reported nursing events. Patient denies pain. Patient symptoms improved. Patient remains on supplemental oxygen via nasal cannula with successful weaning . Hospitalist Physical - Constitutional Vitals: Temp Pulse Resp BP Pulse Ox 97.7 F 63 22 89/58 94 09/18/21 17:48 09/18/21 17:48 09/18/21 17:48 09/18/21 17:48 09/18/21 17:48 General appearance: Present: no acute distress, well-nourished - EENT Eyes: Present: PERRL, EOM intact ENT: hearing intact - Neck Neck: Present: supple - Respiratory Respiratory effort: normal Respiratory: bilateral: CTA - Cardiovascular Rhythm: regular Heart Sounds: Present: S1 & S2 - Extremities Extremities: no ischemia Peripheral Pulses: within normal limits - Abdominal General gastrointestinal: soft, non-tender, non-distended - Integumentary Integumentary: Present: clear, dry - Psychiatric Psychiatric: appropriate mood/affect, cooperative - Neurologic Neurologic: CNII-XII intact Results - Labs CBC & Chem 7: 09/09/21 04:21 09/15/21 17:58 Labs: Laboratory Last Values WBC 8.1 K/mm3 (4.5-11.0) 09/09/21 04:21 RBC 4.45 M/mm3 (3.65-5.03) 09/09/21 04:21 Hgb 13.8 gm/dl (11.8-15.2) 09/09/21 04:21 Hct 42.1 % (35.5-45.6) 09/09/21 04:21 MCV 95 fl (84-94) H 09/09/21 04:21 MCH 31 pg (28-32) 09/09/21 04:21 MCHC 33 % (32-34) 09/09/21 04:21 RDW 12.8 % (13.2-15.2) L 09/09/21 04:21 Plt Count 398 K/mm3 (140-440) 09/09/21 04:21 Lymph % (Auto) 8.4 % (13.4-35.0) L 09/09/21 04:21 [place] % (Auto) 7.8 % (0.0-7.3) H 09/09/21 04:21 Eos % (Auto) 0.0 % (0.0-4.3) 09/09/21 04:21 Baso % (Auto) 0.1 % (0.0-1.8) 09/09/21 04:21 Lymph # (Auto) 0.7 K/mm3 (1.2-5.4) L 09/09/21 04:21 [place] # (Auto) 0.6 K/mm3 (0.0-0.8) 09/09/21 04:21 Eos # (Auto) 0.0 K/mm3 (0.0-0.4) 09/09/21 04:21 Baso # (Auto) 0.0 K/mm3 (0.0-0.1) 09/09/21 04:21 Seg Neutrophils % 83.7 % (40.0-70.0) H 09/09/21 04:21 Seg Neutrophils # 6.8 K/mm3 (1.8-7.7) 09/09/21 04:21 D-Dimer 571.53 ng/mlDDU (0-234) H 09/07/21 22:50 Sodium 139 mmol/L (137-145) 09/11/21 07:31 Potassium 4.3 mmol/L (3.6-5.0) 09/11/21 07:31 Chloride 105.4 mmol/L (98-107) 09/11/21 07:31 Carbon Dioxide 23 mmol/L (22-30) 09/11/21 07:31 Anion Gap 15 mmol/L 09/11/21 07:31 BUN 18 mg/dL (9-20) 09/11/21 07:31 Creatinine 0.6 mg/dL (0.8-1.3) L 09/11/21 07:31 Estimated GFR > 60 ml/min 09/11/21 07:31 BUN/Creatinine Ratio 30 % 09/11/21 07:31 Glucose 448 mg/dL (75-100) H 09/15/21 17:58 POC Glucose 348 mg/dL (70-105) H 09/18/21 16:16 Lactic Acid 1.40 mmol/L (0.7-2.0) 09/08/21 02:04 Calcium 8.8 mg/dL (8.4-10.2) 09/11/21 07:31 Ferritin 1159.0 ng/mL (30.0-300.0) H 09/07/21 22:50 Total Bilirubin 0.30 mg/dL (0.1-1.2) 09/11/21 07:31 AST 24 units/L (5-40) 09/11/21 07:31 ALT 73 units/L (7-56) H 09/11/21 07:31 Alkaline Phosphatase 91 units/L (35-129) 09/11/21 07:31 Lactate Dehydrogenase 359 units/L (91-180) H 09/07/21 22:50 C-Reactive Protein 13.00 mg/dL (0.00-1.30) H 09/07/21 22:50 Total Protein 6.7 g/dL (6.3-8.2) 09/11/21 07:31 Albumin 3.2 g/dL (3.9-5) L 09/11/21 07:31 Albumin/Globulin Ratio 0.9 % 09/11/21 07:31 Procalcitonin < 0.05 ng/mL (<0.15) 09/07/21 22:50 Coronavirus (PCR) Positive (Negative) A 09/08/21 08:27 Karimi/IV: Voiding Method Urinal Active Medications - Current Medications Current Medications: Generic Name Dose Route Start Last Admin Trade Name Freq PRN Reason Stop Dose Admin Acetaminophen 650 mg 09/08/21 01:14 Acetaminophen 325 Mg Tab PO Q4H PRN Pain MILD(1-3)/Fever >100.5/NEWELL Albuterol 2.5 mg 09/10/21 13:00 Albuterol 2.5 Mg/3 Ml Nebu IH Q4HRT PRN Shortness Of Breath Ascorbic Acid 500 mg 09/08/21 10:00 09/18/21 11:54 Ascorbic Acid 500 Mg Tab PO 500 mg BID SWATHI Administration Cholecalciferol 1,000 unit 09/08/21 10:00 09/18/21 11:55 Cholecalciferol (Vit D3) 1000 Unit (25 Mcg) Tab PO 1,000 unit DAILY SWATHI Administration Famotidine 20 mg 09/08/21 10:00 09/18/21 11:54 Famotidine 20 Mg Tab PO 20 mg BID SWATHI Administration Guaifenesin 200 mg 09/12/21 08:24 09/13/21 05:51 Guaifenesin 100 Mg/5 Ml Oral Liqd PO 200 mg Q4H PRN Administration Cough Heparin Sodium (Porcine) 5,000 unit 09/08/21 06:00 09/18/21 16:44 Heparin 5,000 Unit/1 Ml Vial SUB-Q 5,000 unit Q8HR SWATHI Administration Hydromorphone HCl 0.5 mg 09/08/21 01:14 Hydromorphone 1 Mg/1 Ml Inj IV Q3H PRN Pain , Severe (7-10) Sodium Chloride 1,000 mls @ 75 mls/hr 09/12/21 08:30 09/17/21 22:05 Nacl 0.9% 1000 Ml IV 75 mls/hr DIRECT SWATHI Administration Insulin Human Lispro 0 unit 09/14/21 18:27 09/18/21 18:04 Insulin Lispro 100 Unit/Ml SUB-Q 8 unit Q6HR SWATHI Administration Protocol Morphine Sulfate 2 mg 09/08/21 01:14 Morphine 2 Mg/1 Ml Inj IV Q4H PRN Pain, Moderate (4-6) Ondansetron HCl 4 mg 09/08/21 01:14 Ondansetron 4 Mg/2 Ml Inj IV Q8H PRN Nausea And Vomiting Sodium Chloride 10 ml 09/08/21 10:00 09/18/21 11:55 Sodium Chloride 0.9% 10 Ml Flush Syringe IV 10 ml BID SWATHI Administration Sodium Chloride 10 ml 09/08/21 01:14 Sodium Chloride 0.9% 10 Ml Flush Syringe IV PRN PRN LINE FLUSH Zinc Sulfate 220 mg 09/08/21 10:00 09/18/21 11:54 Zinc Sulfate 220 Mg Cap PO 220 mg BID SWATHI Administration Nutrition/Malnutrition Assess - Dietary Evaluation Nutrition/Malnutrition Findings: Nutrition Notes Start: 09/12/21 10:01 Freq: Status: Active Protocol: Document 09/12/21 10:01 PAN (Rec: 09/12/21 10:31 PAN [id number]) Nutrition Notes Need for Assessment generated from: Low BMI Initial or Follow up Assessment Current Diagnosis Respiratory Failure Other Pertinent Diagnosis COVID-19, Pneumonia. Current Diet Cardiac Diet (since B 09/08). Labs/Tests 09/11: Crea 0.6, Glu 247. Pertinent Medications 09/12: Vit C, Vit D3, ZnSO4, others nutritionally unremarkable. Height 5 ft 9 in Weight 69.1 kg [place] Body Weight (kg) 72.72 BMI 22.4 Intake Prior to Admission Good Weight change and time frame Pt states not having loss body weight [employer]. Subjective/Other Information RD consult for Low BMI assessment. Low BMI was not a valid diagnosis. Pt's actual body weight is WNL (69.1 Kg) revised by RN over the phone, not 25.1 Kg as reported. No report available on Pt's PO intake of meals at the time. Percent of energy/protein needs met: Prescribed Cardiac Diet provides for energy/protein needs (2,230 Kcal/85 g) during LOS. Burn Absent Trauma Absent GI Symptoms None Food Allergy No Skin Integrity/Comment Clear, warm, dry. Minimum of two criteria No Is patient on ventilator? No Is Patient Ambulatory and/or Out of Bed Yes REE-([place]-St. Jeor-ambulatory/OOB) [ NUTR.MSJOOB] Kcal/Kg value to use for calculation 20 Approximate Energy Requirements Using 1382 kcal/Kg Calculation Used for Recommendations Kcal/kg Additional Notes 15-20 Kcal/Kg ABW (70-80% of EEN). Protein: 1.2-2 g/Kg; 83-138 g/ day. Fluids: 1 ml/Kcal, or as per MD. Nutrition Intervention Follow-Up By: 09/19/21 Additional Comments Continue monitoring food tolerance, %PO intake of meals , and BM.
--- NOTE | 2021-09-18 20:59 | Progress Note ---
Assessment and Plan - Patient Problems (1) Acute respiratory failure Current Visit: Yes Status: Acute Qualifiers: Respiratory failure complication: hypoxia Qualified Code(s): J96.01 - Acute respiratory failure with hypoxia Plan to address problem: Supplemental oxygen, pulse oximetry, nebulizer therapy, pulmonary toilet. (2) Pneumonia Current Visit: Yes Status: Acute Plan to address problem: Resolved (3) Coronavirus infection Current Visit: Yes Status: Acute Plan to address problem: Groin rash protocol: IV steroid therapy, IV antibiotic therapy, vitamin C therapy, vitamin D therapy, zinc therapy, supplemental oxygen. Remdesivir therapy (4) DVT prophylaxis Current Visit: Yes Status: Acute Plan to address problem: SCD to bilateral lower extremities while in bed, prophylactic anticoagulation (5) Advance care planning Current Visit: Yes Status: Acute Plan to address problem: Disease education conducted, care plan discussed, diagnosis discussed, prognosis discussed, patient is full code, patient acknowledges understanding and agreement with care plan, +30 minutes (6) COVID-19 vaccination not done Current Visit: Yes Status: Acute Plan to address problem: Patient counseled. History Interval history: 46 YO Male HD #9 with Coronavirus Infection, Pneumonia. Patient rested comfortably overnight. No reported nursing events. Patient denies pain. Patient symptoms improved. Patient remains on supplemental oxygen via nasal cannula with successful weaning and decreased oxygen requirement Hospitalist Physical - Constitutional Vitals: Temp Pulse Resp BP Pulse Ox 97.7 F 63 22 89/58 94 09/18/21 17:48 09/18/21 17:48 09/18/21 17:48 09/18/21 17:48 09/18/21 17:48 General appearance: Present: no acute distress, well-nourished - EENT Eyes: Present: PERRL, EOM intact ENT: hearing intact - Neck Neck: Present: supple - Respiratory Respiratory effort: normal Respiratory: bilateral: CTA - Cardiovascular Rhythm: regular - Extremities Extremities: no ischemia Peripheral Pulses: within normal limits - Abdominal General gastrointestinal: soft, non-tender, non-distended - Integumentary Integumentary: Present: clear, dry - Psychiatric Psychiatric: cooperative - Neurologic Neurologic: CNII-XII intact Results - Labs CBC & Chem 7: 09/09/21 04:21 09/15/21 17:58 Labs: Laboratory Last Values WBC 8.1 K/mm3 (4.5-11.0) 09/09/21 04:21 RBC 4.45 M/mm3 (3.65-5.03) 09/09/21 04:21 Hgb 13.8 gm/dl (11.8-15.2) 09/09/21 04:21 Hct 42.1 % (35.5-45.6) 09/09/21 04:21 MCV 95 fl (84-94) H 09/09/21 04:21 MCH 31 pg (28-32) 09/09/21 04:21 MCHC 33 % (32-34) 09/09/21 04:21 RDW 12.8 % (13.2-15.2) L 09/09/21 04:21 Plt Count 398 K/mm3 (140-440) 09/09/21 04:21 Lymph % (Auto) 8.4 % (13.4-35.0) L 09/09/21 04:21 [place] % (Auto) 7.8 % (0.0-7.3) H 09/09/21 04:21 Eos % (Auto) 0.0 % (0.0-4.3) 09/09/21 04:21 Baso % (Auto) 0.1 % (0.0-1.8) 09/09/21 04:21 Lymph # (Auto) 0.7 K/mm3 (1.2-5.4) L 09/09/21 04:21 [place] # (Auto) 0.6 K/mm3 (0.0-0.8) 09/09/21 04:21 Eos # (Auto) 0.0 K/mm3 (0.0-0.4) 09/09/21 04:21 Baso # (Auto) 0.0 K/mm3 (0.0-0.1) 09/09/21 04:21 Seg Neutrophils % 83.7 % (40.0-70.0) H 09/09/21 04:21 Seg Neutrophils # 6.8 K/mm3 (1.8-7.7) 09/09/21 04:21 D-Dimer 571.53 ng/mlDDU (0-234) H 09/07/21 22:50 Sodium 139 mmol/L (137-145) 09/11/21 07:31 Potassium 4.3 mmol/L (3.6-5.0) 09/11/21 07:31 Chloride 105.4 mmol/L (98-107) 09/11/21 07:31 Carbon Dioxide 23 mmol/L (22-30) 09/11/21 07:31 Anion Gap 15 mmol/L 09/11/21 07:31 BUN 18 mg/dL (9-20) 09/11/21 07:31 Creatinine 0.6 mg/dL (0.8-1.3) L 09/11/21 07:31 Estimated GFR > 60 ml/min 09/11/21 07:31 BUN/Creatinine Ratio 30 % 09/11/21 07:31 Glucose 448 mg/dL (75-100) H 09/15/21 17:58 POC Glucose 348 mg/dL (70-105) H 09/18/21 16:16 Lactic Acid 1.40 mmol/L (0.7-2.0) 09/08/21 02:04 Calcium 8.8 mg/dL (8.4-10.2) 09/11/21 07:31 Ferritin 1159.0 ng/mL (30.0-300.0) H 09/07/21 22:50 Total Bilirubin 0.30 mg/dL (0.1-1.2) 09/11/21 07:31 AST 24 units/L (5-40) 09/11/21 07:31 ALT 73 units/L (7-56) H 09/11/21 07:31 Alkaline Phosphatase 91 units/L (35-129) 09/11/21 07:31 Lactate Dehydrogenase 359 units/L (91-180) H 09/07/21 22:50 C-Reactive Protein 13.00 mg/dL (0.00-1.30) H 09/07/21 22:50 Total Protein 6.7 g/dL (6.3-8.2) 09/11/21 07:31 Albumin 3.2 g/dL (3.9-5) L 09/11/21 07:31 Albumin/Globulin Ratio 0.9 % 09/11/21 07:31 Procalcitonin < 0.05 ng/mL (<0.15) 09/07/21 22:50 Coronavirus (PCR) Positive (Negative) A 09/08/21 08:27 Karimi/IV: Voiding Method Urinal Active Medications - Current Medications Current Medications: Generic Name Dose Route Start Last Admin Trade Name Freq PRN Reason Stop Dose Admin Acetaminophen 650 mg 09/08/21 01:14 Acetaminophen 325 Mg Tab PO Q4H PRN Pain MILD(1-3)/Fever >100.5/NEWELL Albuterol 2.5 mg 09/10/21 13:00 Albuterol 2.5 Mg/3 Ml Nebu IH Q4HRT PRN Shortness Of Breath Ascorbic Acid 500 mg 09/08/21 10:00 09/18/21 11:54 Ascorbic Acid 500 Mg Tab PO 500 mg BID SWATHI Administration Cholecalciferol 1,000 unit 09/08/21 10:00 09/18/21 11:55 Cholecalciferol (Vit D3) 1000 Unit (25 Mcg) Tab PO 1,000 unit DAILY SWATHI Administration Famotidine 20 mg 09/08/21 10:00 09/18/21 11:54 Famotidine 20 Mg Tab PO 20 mg BID SWATHI Administration Guaifenesin 200 mg 09/12/21 08:24 09/13/21 05:51 Guaifenesin 100 Mg/5 Ml Oral Liqd PO 200 mg Q4H PRN Administration Cough Heparin Sodium (Porcine) 5,000 unit 09/08/21 06:00 09/18/21 16:44 Heparin 5,000 Unit/1 Ml Vial SUB-Q 5,000 unit Q8HR SWATHI Administration Hydromorphone HCl 0.5 mg 09/08/21 01:14 Hydromorphone 1 Mg/1 Ml Inj IV Q3H PRN Pain , Severe (7-10) Sodium Chloride 1,000 mls @ 75 mls/hr 09/12/21 08:30 09/17/21 22:05 Nacl 0.9% 1000 Ml IV 75 mls/hr DIRECT SWATHI Administration Insulin Human Lispro 0 unit 09/14/21 18:27 09/18/21 18:04 Insulin Lispro 100 Unit/Ml SUB-Q 8 unit Q6HR SWATHI Administration Protocol Morphine Sulfate 2 mg 09/08/21 01:14 Morphine 2 Mg/1 Ml Inj IV Q4H PRN Pain, Moderate (4-6) Ondansetron HCl 4 mg 09/08/21 01:14 Ondansetron 4 Mg/2 Ml Inj IV Q8H PRN Nausea And Vomiting Sodium Chloride 10 ml 09/08/21 10:00 09/18/21 11:55 Sodium Chloride 0.9% 10 Ml Flush Syringe IV 10 ml BID SWATHI Administration Sodium Chloride 10 ml 09/08/21 01:14 Sodium Chloride 0.9% 10 Ml Flush Syringe IV PRN PRN LINE FLUSH Zinc Sulfate 220 mg 09/08/21 10:00 09/18/21 11:54 Zinc Sulfate 220 Mg Cap PO 220 mg BID SWATHI Administration Nutrition/Malnutrition Assess - Dietary Evaluation Nutrition/Malnutrition Findings: Nutrition Notes Start: 09/12/21 10:01 Freq: Status: Active Protocol: Document 09/12/21 10:01 PAN (Rec: 09/12/21 10:31 PAN [id number]) Nutrition Notes Need for Assessment generated from: Low BMI Initial or Follow up Assessment Current Diagnosis Respiratory Failure Other Pertinent Diagnosis COVID-19, Pneumonia. Current Diet Cardiac Diet (since B 09/08). Labs/Tests 09/11: Crea 0.6, Glu 247. Pertinent Medications 09/12: Vit C, Vit D3, ZnSO4, others nutritionally unremarkable. 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 Subjective/Other Information RD consult for Low BMI assessment. Low BMI was not a valid diagnosis. Pt's actual body weight is WNL (69.1 Kg) revised by RN over the phone, not 25.1 Kg as reported. No report available on Pt's PO intake of meals at the time. Percent of energy/protein needs met: Prescribed Cardiac Diet provides for energy/protein needs (2,230 Kcal/85 g) during LOS. Burn Absent Trauma Absent GI Symptoms None Food Allergy No Skin Integrity/Comment Clear, warm, dry. Minimum of two criteria No Is patient on ventilator? No Is Patient Ambulatory and/or Out of Bed Yes REE-([place]-St. or-ambulatory/OOB) [ 2028.79 NUTR.MSJOOB] Kcal/Kg value to use for calculation 20 Approximate Energy Requirements Using 1382 kcal/Kg Calculation Used for Recommendations Kcal/kg Additional Notes 15-20 Kcal/Kg ABW (70-80% of EEN). Protein: 1.2-2 g/Kg; 83-138 g/ day. Fluids: 1 ml/Kcal, or as per MD. Nutrition Intervention Follow-Up By: 09/19/21 Additional Comments Continue monitoring food tolerance, %PO intake of meals , and BM.
--- NOTE | 2021-09-18 20:59 | Discharge Summary ---
Providers - Providers Date of Admission: 09/08/21 01:14 Attending physician: DEEPALI BIRD 09/08/21 01:22 Consult to Physician [CONS] Routine Comment: Consulting Provider: BERTRAND CASTELLANOS Physician Instructions: Reason For Exam: covid Primary care physician: COPY LATHE TENDER Hospitalization Condition: Stable Disposition: 30 STILL A PATIENT - Discharge Diagnoses (1) Acute respiratory failure Status: Acute Qualifiers: Respiratory failure complication: hypoxia Qualified Code(s): J96.01 - Acute respiratory failure with hypoxia (2) Pneumonia Status: Acute (3) Coronavirus infection Status: Acute (4) DVT prophylaxis Status: Acute (5) Advance care planning Status: Acute (6) COVID-19 vaccination not done Status: Acute Exam - Constitutional Vitals: Temp Pulse Resp BP Pulse Ox 97.7 F 63 22 89/58 94 09/18/21 17:48 09/18/21 17:48 09/18/21 17:48 09/18/21 17:48 09/18/21 17:48 Plan Follow up with: PRIMARY CAREMD [Primary Care Provider] - 3-5 Days Prescriptions: Azithromycin 250 mg PO DAILY #6 Prednisone [predniSONE 10 mg (6-Day Pack, 21 Tabs)] 10 mg PO .TAPER #1 Ascorbic Acid [Vitamin C] 1,000 mg PO DAILY #12 Cholecalciferol Vit D3 [Vitamin D3 1,000 UNIT TAB] 1,000 unit PO QDAY #12 tablet Zinc Sulfate [Zinc] 220 mg PO BID #24
== END 2021-09-18 21:55 | disposition home or self-care (01) | DRG 177 ==
LOC: EDSEX → ED 22:31 → 3A 09-08 01:14
PROVIDERS: ADMIT Hospitalist; ATTEND Internal Medicine
PROC: XW033E5 Introduction of Remdesivir Anti-infective into Peripheral Vein, Percutaneous Approach, New Technology Group 5 (ICD-10-PCS; principal; 2021-09-08)
DX: U07.1 COVID-19 (principal); J96.01 Acute respiratory failure with hypoxia; J12.82 Pneumonia due to coronavirus disease 2019
CPT/HCPCS: 36415; 71045; 80053; 82140; 82728; 82947; 82962; 83615; 84145; 85025; 85379; 86140; 87040; 94640; 94760; G0378; Q0162; Q9967; J0456; J0696; J1100; J1644; J1815; J7030; J7040; J7050; J8540; U0003